=== PATIENT | female | born 1935 | race Caucasian/White ===

== ENCOUNTER → 2017-03-18 | Outpatient (CLI) | payer MEDICARE ==
[~2017-03-18] MED LIST: ARICEPT23MG PO; DONEPEZIL HYDRO23 M1 PO; FISH OIL 1,2001 EAC1 PO; GLUCOPHAGE1000 MG PO; LISINOPRIL40 MG PO; METFORMIN HCL1000 MG PO; METOPROLOL25 MG PO; NORVASC5 MG PO; VITAMIN D31000 IU PO; ZESTRIL40 MG PO; ZOCOR40 MG PO; ZOFRAN ODT4 MG SL; Zofran4 MG PO
[2017-03-18 09:44] LABS: ALBUMIN 4.2 gm/dl (3.1-4.5); BILIRUBIN, DIRECT 0.1 mg/dL (0.0-0.2); BILIRUBIN, TOTAL 0.5 mg/dl (0.2-1.0); POTASSIUM 3.9 mmol/L (3.5-5.1); TOTAL PROTEIN 7.7 gm/dL (6.4-8.2)
[2017-03-18 10:04] LABS: HEMOGLOBIN A1c 6.4 % (4.8-5.6)
== END | disposition home or self-care (01) ==
LOC: LAB 08:51
PROVIDERS: Internal Medicine
DX: I25.10 Atherosclerotic heart disease of native coronary artery without angina pectoris (principal); I10 Essential (primary) hypertension; E11.9 Type 2 diabetes mellitus without complications; G47.62 Sleep related leg cramps; E78.4 Other hyperlipidemia; Z79.1 Long term (current) use of non-steroidal anti-inflammatories (NSAID)

== ENCOUNTER → 2017-09-29 | Outpatient (CLI) | payer MEDICARE ==
[2017-09-29 09:40] LABS: POTASSIUM 3.9 mmol/L (3.5-5.1)
[2017-09-29 09:52] LABS: ALBUMIN 4.1 gm/dl (3.1-4.5); BILIRUBIN, DIRECT 0.1 mg/dL (0.0-0.2); CREATININE 1.21 mg/dL (0.55-1.02); FREE T4 1.05 ng/dl (0.76-1.46); THYROID STIM HORMONE (HS) 2.79 uIU/ml (0.358-4.75); TOTAL PROTEIN 7.6 gm/dL (6.4-8.2)
== END | disposition home or self-care (01) ==
LOC: LAB 08:49
PROVIDERS: Internal Medicine
DX: I10 Essential (primary) hypertension (principal); E11.9 Type 2 diabetes mellitus without complications; E78.4 Other hyperlipidemia; L98.8 Other specified disorders of the skin and subcutaneous tissue; E55.9 Vitamin D deficiency, unspecified; R53.83 Other fatigue

== ENCOUNTER → 2017-10-14 | Outpatient (CLI) | payer MEDICARE | END | disposition home or self-care (01) | LOC: US 09:20 | DX: N18.3 Chronic kidney disease, stage 3 (moderate) (principal); R79.89 Other specified abnormal findings of blood chemistry ==

== ENCOUNTER 2017-11-25 18:42 | Emergency (ER) | payer MEDICARE ==
[~2017-11-25] VITALS: Wt 58.1 kg
[2017-11-25] MEDS ORDERED: MEMANTINE HCL10 MG PO (18:55)
[2017-11-25 19:23] LABS: BASO # 0.1 10*3/uL (0.0-0.1); BASO % 0.9 % (0.0-1.0); EOS # 0.2 10*3/uL (0.0-0.4); EOS % 3.3 % (1.0-4.0); HEMOGLOBIN 14.2 g/dl (12.0-16.0); LYMPH # 1.9 10*3/uL (1.3-4.4); LYMPH % 27.6 % (27.0-41.0); MEAN CELL VOLUME 84.7 fl (81.0-99.0); MEAN CORPUSCULAR HGB 28.6 pg (27.0-31.0); MEAN CORPUSCULAR HGB CONC 33.8 g/dl (33.0-37.0); MEAN PLATELET VOLUME 9.8 fl (9.6-12.3); MONO # 0.5 10*3/uL (0.1-1.0); MONO % 7.3 % (3.0-9.0); NEUT # 4.1 10*3/uL (2.3-7.9); NEUT % 60.6 % (47.0-73.0); PLATELET COUNT AUTOMATED 233 10*3/uL (130-400); RED BLOOD COUNT 4.96 10*6/uL (4.10-5.10); RED CELL DISTRI WIDTH 13.1 % (0-14.5); WHITE BLOOD COUNT 6.7 10*3/uL (4.8-10.8)
[2017-11-25 19:37] LABS: ALBUMIN 4.6 gm/dl (3.1-4.5); CREATININE 1.18 mg/dL (0.55-1.02); POTASSIUM 4.1 mmol/L (3.5-5.1); TOTAL PROTEIN 8.4 gm/dL (6.4-8.2)
[2017-11-25 19:44] LABS: BILIRUBIN NEGATIVE (NEGATIVE); BLOOD TRACE-INTACT (NEGATIVE); CLARITY CLEAR (CLEAR); COLOR YELLOW (YELLOW); GLUCOSE NEGATIVE (NEGATIVE); KETONE NEGATIVE (NEGATIVE); LEUKO ESTERASE NEGATIVE (NEGATIVE); NITRITE NEGATIVE (NEGATIVE); PH 7.5 (5.0-9.0); SPECIFIC GRAVITY 1.015 (1.005-1.030); UROBILINOGEN 0.2 E.U./dl (0.2-1.0)
[2017-11-25 19:44] LABS: ACT PARTIAL THROMBO TIME 23.1 SECONDS (20.8-31.5); INTERNATIONAL NORM RATIO 0.9 (2.0-3.5)
[2017-11-25 20:06] LABS: BACTERIA 2+; EPITHELIAL CELLS 0-2
[2017-11-25] MEDS ORDERED: MACROBID100 M1 PO (20:29)
== END 2017-11-25 20:45 | disposition home or self-care (01) ==
LOC: ED 18:42
PROVIDERS: Student in an Organized Health Care Education/Training Program
DX: N39.0 Urinary tract infection, site not specified (principal); T43.8X5A Adverse effect of other psychotropic drugs, initial encounter; Z88.6 Allergy status to analgesic agent; Z91.012 Allergy to eggs; Z91.010 Allergy to peanuts; Z79.899 Other long term (current) drug therapy; Y92.89 Other specified places as the place of occurrence of the external cause

== ENCOUNTER → 2018-01-06 | Outpatient (CLI) | payer MEDICARE ==
[~2018-01-06] MED LIST changes: +MACROBID100 M1 PO; +MEMANTINE HCL10 MG PO
[2018-01-06 09:24] LABS: ALBUMIN 4.1 gm/dl (3.1-4.5); CREATININE 1.25 mg/dL (0.55-1.02); POTASSIUM 4.3 mmol/L (3.5-5.1); TOTAL PROTEIN 7.6 gm/dL (6.4-8.2)
[2018-01-06 09:31] LABS: THYROID STIM HORMONE (HS) 2.07 uIU/ml (0.358-4.75)
[2018-01-06 11:17] LABS: VITAMIN D, 25-HYDROXY 64.9 ng/mL (30-100)
[2018-01-07 09:07] LABS: HEPATITIS B SURFACE AG Negative (Negative); HEPATITIS C VIRUS ANTIBODY <0.1 s/co (0.0-0.9)
== END | disposition home or self-care (01) ==
LOC: LAB 08:23
PROVIDERS: Family Medicine
DX: E78.00 Pure hypercholesterolemia, unspecified (principal); E55.9 Vitamin D deficiency, unspecified; E11.9 Type 2 diabetes mellitus without complications; I10 Essential (primary) hypertension; R63.4 Abnormal weight loss; F03.90 Unspecified dementia, unspecified severity, without behavioral disturbance, psychotic disturbance, mood disturbance, and anxiety

== ENCOUNTER → 2018-01-14 | Outpatient (CLI) | payer MEDICARE | END | disposition home or self-care (01) | LOC: RAD 12:51 | DX: Z13.820 Encounter for screening for osteoporosis (principal); M47.896 Other spondylosis, lumbar region; M81.0 Age-related osteoporosis without current pathological fracture; Z90.710 Acquired absence of both cervix and uterus ==

== ENCOUNTER → 2018-02-11 | Outpatient (CLI) | payer MEDICARE ==
[2018-02-11 10:42] LABS: BASO # 0.1 10*3/uL (0.0-0.1); BASO % 0.9 % (0.0-1.0); EOS # 0.2 10*3/uL (0.0-0.4); EOS % 2.9 % (1.0-4.0); HEMATOCRIT 44.5 % (37.0-47.0); HEMOGLOBIN 14.8 g/dl (12.0-16.0); LYMPH # 1.9 10*3/uL (1.3-4.4); LYMPH % 33.9 % (27.0-41.0); MEAN CELL VOLUME 87.6 fl (81.0-99.0); MEAN CORPUSCULAR HGB 29.1 pg (27.0-31.0); MEAN CORPUSCULAR HGB CONC 33.3 g/dl (33.0-37.0); MEAN PLATELET VOLUME 9.9 fl (9.6-12.3); MONO # 0.4 10*3/uL (0.1-1.0); MONO % 7.5 % (3.0-9.0); NEUT # 3.1 10*3/uL (2.3-7.9); NEUT % 54.6 % (47.0-73.0); PLATELET COUNT AUTOMATED 277 10*3/uL (130-400); RED BLOOD COUNT 5.08 10*6/uL (4.10-5.10); RED CELL DISTRI WIDTH 13.1 % (0-14.5); WHITE BLOOD COUNT 5.6 10*3/uL (4.8-10.8)
[2018-02-11 10:44] LABS: BILIRUBIN NEGATIVE (NEGATIVE); BLOOD TRACE-LYSED (NEGATIVE); CLARITY SL CLOUDY (CLEAR); COLOR YELLOW (YELLOW); GLUCOSE NEGATIVE (NEGATIVE); KETONE NEGATIVE (NEGATIVE); LEUKO ESTERASE 1+ (NEGATIVE); NITRITE NEGATIVE (NEGATIVE); PH 7.5 (5.0-9.0); SPECIFIC GRAVITY 1.015 (1.005-1.030); UROBILINOGEN 0.2 E.U./dl (0.2-1.0)
[2018-02-11 10:56] LABS: YEAST TRACE
[2018-02-11 11:07] LABS: ALBUMIN 4.4 gm/dl (3.1-4.5); CREATININE 1.32 mg/dL (0.55-1.02); PHOSPHOROUS 3.3 mg/dL (2.5-4.9); POTASSIUM 4.1 mmol/L (3.5-5.1)
== END ==
LOC: LAB 09:56
PROVIDERS: Internal Medicine Nephrology
DX: N18.3 Chronic kidney disease, stage 3 (moderate) (principal)

== ENCOUNTER 2018-03-30 08:47 | Emergency (ER) | payer MEDICARE ==
[~2018-03-30] VITALS: Ht 162.5 cm; Wt 50.3 kg
[2018-03-30 09:25] LABS: BASO # 0.1 10*3/uL (0.0-0.1); EOS # 0.2 10*3/uL (0.0-0.4); EOS % 2.5 % (1.0-4.0); HEMATOCRIT 45.6 % (37.0-47.0); HEMOGLOBIN 15.3 g/dl (12.0-16.0); LYMPH # 2.2 10*3/uL (1.3-4.4); LYMPH % 31.6 % (27.0-41.0); MEAN CELL VOLUME 85.9 fl (81.0-99.0); MEAN CORPUSCULAR HGB 28.8 pg (27.0-31.0); MEAN CORPUSCULAR HGB CONC 33.6 g/dl (33.0-37.0); MEAN PLATELET VOLUME 9.4 fl (9.6-12.3); MONO # 0.5 10*3/uL (0.1-1.0); MONO % 6.8 % (3.0-9.0); PLATELET COUNT AUTOMATED 283 10*3/uL (130-400); RED BLOOD COUNT 5.31 10*6/uL (4.10-5.10); RED CELL DISTRI WIDTH 12.8 % (0-14.5); WHITE BLOOD COUNT 6.9 10*3/uL (4.8-10.8)
[2018-03-30] MEDS ORDERED: MIRALAX POWDER17 G1 PO (09:31)
[2018-03-30 09:40] LABS: ALBUMIN 4.6 gm/dl (3.1-4.5); CREATININE 1.55 mg/dL (0.55-1.02); POTASSIUM 4.1 mmol/L (3.5-5.1); TOTAL PROTEIN 8.4 gm/dL (6.4-8.2)
[2018-03-30 09:52] LABS: BILIRUBIN NEGATIVE (NEGATIVE); BLOOD TRACE-LYSED (NEGATIVE); CLARITY CLEAR (CLEAR); COLOR YELLOW (YELLOW); GLUCOSE NEGATIVE (NEGATIVE); KETONE NEGATIVE (NEGATIVE); LEUKO ESTERASE NEGATIVE (NEGATIVE); NITRITE NEGATIVE (NEGATIVE); UROBILINOGEN 0.2 E.U./dl (0.2-1.0)
[2018-03-30 10:18] LABS: BACTERIA 2+; FINE GRANULAR CAST TNTC; HYALINE CAST TNTC; MUCOUS 1+; RED BLOOD CELL CAST 0-2
== END 2018-03-30 11:17 | disposition home or self-care (01) ==
LOC: ED 08:47
PROVIDERS: Emergency Medicine
DX: K59.00 Constipation, unspecified (principal); R74.0 Nonspecific elevation of levels of transaminase and lactic acid dehydrogenase [LDH]; R10.30 Lower abdominal pain, unspecified; E11.65 Type 2 diabetes mellitus with hyperglycemia; I12.9 Hypertensive chronic kidney disease with stage 1 through stage 4 chronic kidney disease, or unspecified chronic kidney disease; E11.22 Type 2 diabetes mellitus with diabetic chronic kidney disease; N18.9 Chronic kidney disease, unspecified; E78.5 Hyperlipidemia, unspecified; Z79.899 Other long term (current) drug therapy; Z90.710 Acquired absence of both cervix and uterus; Z90.49 Acquired absence of other specified parts of digestive tract; Z88.6 Allergy status to analgesic agent; Z91.013 Allergy to seafood; Z91.012 Allergy to eggs

== ENCOUNTER 2018-06-16 14:14 | Emergency (ER) | payer MEDICARE ==
[~2018-06-16] VITALS: Ht 162.5 cm; Wt 54.9 kg
--- NOTE | ~2018-06-16 | EKG ---
[place], [place] ELECTROCARDIOGRAM REPORT NAME: CINDY ANDERSON UNIT #: [id number] ROOM: DOCTOR: EPIPHANY DRAFT REPORT BIRTHDATE: [birth year] [facility] Test Date: 2018-06-16 Test Time: 15:46:27 Pat Name: CINDY ANDERSON Department: Room: Gender: F Meter Technician: : 1935 Requested By: NIKKY SHARPE DNP Order Number: [id number] Reading MD: Measurements Intervals [place] Rate: 76 P: 28 ID: [id number] QRS: 46 QRSD: 74 T: 68 QT: 402 QTc: 453 Interpretive Statements Sinus rhythm No previous ECG available for comparison CM:EKGRPT:ELECTROCARDIOGRAM REPORT 1546 1248 NIKKY LAGUNA DRAFT REPORT NIKKY SHARPE DNP
[~2018-06-16 14:14] MED LIST changes: +MIRALAX POWDER17 G1 PO; -VITAMIN D31000 IU PO; +VITAMIN D31000 UNI1 PO
[2018-06-16] MEDS ORDERED: ALENDRONATE SOD70 M1 PO (14:46)
[2018-06-16] MEDS ORDERED: ZOLOFT25 MG PO (14:46)
[2018-06-16] MEDS ORDERED: CO Q-1010 M2 PO (14:47)
[2018-06-16] MEDS ORDERED: OS-CAL 500+D31 EACH PO (14:47)
[2018-06-16 15:45] LABS: BILIRUBIN NEGATIVE (NEGATIVE); BLOOD TRACE-INTACT (NEGATIVE); CLARITY CLEAR (CLEAR); COLOR YELLOW (YELLOW); GLUCOSE NEGATIVE (NEGATIVE); KETONE NEGATIVE (NEGATIVE); LEUKO ESTERASE TRACE (NEGATIVE); NITRITE NEGATIVE (NEGATIVE); UROBILINOGEN 0.2 E.U./dl (0.2-1.0)
[2018-06-16 15:51] LABS: BASO # 0.1 10*3/uL (0.0-0.1); BASO % 0.7 % (0.0-1.0); EOS # 0.1 10*3/uL (0.0-0.4); EOS % 1.7 % (1.0-4.0); HEMATOCRIT 41.2 % (37.0-47.0); HEMOGLOBIN 13.9 g/dl (12.0-16.0); LYMPH % 28.3 % (27.0-41.0); MEAN CELL VOLUME 86.2 fl (81.0-99.0); MEAN CORPUSCULAR HGB 29.1 pg (27.0-31.0); MEAN CORPUSCULAR HGB CONC 33.7 g/dl (33.0-37.0); MEAN PLATELET VOLUME 9.2 fl (9.6-12.3); MONO # 0.7 10*3/uL (0.1-1.0); MONO % 9.7 % (3.0-9.0); NEUT # 4.2 10*3/uL (2.3-7.9); NEUT % 59.3 % (47.0-73.0); PLATELET COUNT AUTOMATED 332 10*3/uL (130-400); RED BLOOD COUNT 4.78 10*6/uL (4.10-5.10); RED CELL DISTRI WIDTH 12.8 % (0-14.5); WHITE BLOOD COUNT 7.1 10*3/uL (4.8-10.8)
[2018-06-16 16:03] LABS: URINE AMPHETAMINES < 1000 (1000ng/ml); URINE BARBITURATES < 200 (200ng/ml); URINE CANNABINOIDS (THC) < 50 (50ng/ml); URINE COCAINE < 300 (300ng/ml); URINE METHADONE < 300 (300ng/ml); URINE OPIATES < 300 (300ng/ml)
[2018-06-16 16:04] LABS: URINE BENZODIAZEPINES < 200 (200ng/ml)
[2018-06-16 16:08] LABS: URINE PHENCYCLIDINE < 25 (25ng/ml)
[2018-06-16 16:11] LABS: ACETAMINOPHEN (TYLENOL) < 5.0 ug/ml (10-30); ALBUMIN 3.9 gm/dl (3.1-4.5); ALKALINE PHOSPHATASE 80 U/L (45-117); BUN 17 mg/dl (7-24); CHLORIDE 103 mmol/L (98-107); CREATININE 1.19 mg/dL (0.55-1.02); ETHYL ALCOHOL < 3.0 mg/dl (<3); POTASSIUM 4.3 mmol/L (3.5-5.1); SGOT/AST 17 IU/L (3-35); SGPT/ALT 13 U/L (12-78); SODIUM 137 mmol/L (136-145); TOTAL PROTEIN 7.9 gm/dL (6.4-8.2)
[2018-06-16 16:25] LABS: BACTERIA TRACE
== END 2018-06-16 21:09 | disposition other institution (70) ==
LOC: ED 14:14
PROVIDERS: Nurse Practitioner Family
DX: F33.9 Major depressive disorder, recurrent, unspecified (principal); R45.851 Suicidal ideations; Z88.6 Allergy status to analgesic agent; Z88.8 Allergy status to other drugs, medicaments and biological substances; Z79.899 Other long term (current) drug therapy

== ENCOUNTER 2018-06-16 18:26 | Inpatient (IN) | payer MEDICARE ==
[~2018-06-16] VITALS: Ht 158.7 cm; Wt 53.2 kg
--- NOTE | ~2018-06-16 | DS ---
[place], [place] DISCHARGE SUMMARY [id number] UN[facility] #: [id number] ROOM: 314 DOCTOR: NORM CREWS MD BIRTHDATE: [birth year] DOS: 06/22/2018 CHIEF COMPLAINT: "I don't remember what happened." HISTORY OF PRESENT ILLNESS: This is an 83-year-old white female who presented to the Emergency Room at [facility] with family. The patient was found by family sitting at the edge of her bed with a knife held to her wrist. She does not remember doing this, but did voice that she was suicidal and very depressed. While in the Emergency Room, the patient did not remember sitting there with a knife, but does continue to endorse depressive symptomatology. She reports poor sleep and appetite, anergia, hopeless, helpless feelings. The patient has been increasingly confused at home and family has noted a decline over the last several months. She was admitted now to the [facility] to rule out any organic factors, to attempt to stabilize on medication, to engage in individual and rizvi milieu activity and then to determine the least restrictive environment to which she could return. SUMMARY OF HOSPITAL COURSE: The patient was admitted to the unit where her donepezil was discontinued in lieu of Exelon patch 4.6 mg daily, Namenda 10 mg a day was continued from her home medicines and gradually increased to its maximum dose of 10 mg twice daily. The patient had presented with sertraline as her antidepressant of choice from home, but this was ineffective, so it was discontinued in lieu of Remeron 15 mg at bedtime, which had an immediate improvement on her sleep and appetite. The patient tolerated the medication changes well. Eventually, the Exelon patch was brought to its maximum dose of 13.3 mg daily without any apparent side effects. The patient improved gradually over time she became much more outgoing and left her room more frequently. She engaged in group activities with the entire milieu and especially with many of the women her own age. She reported no further symptoms of depression and convincingly denied any suicidal thoughts or plans. The patient had improved sufficiently to return home on 06/22. MENTAL STATUS AT DISCHARGE: She is alert and oriented with time gaps. Mood does seem to be more euthymic and she even joked with me upon discharge, she denied any neurovegetative symptoms. She denied suicidal thoughts, homicidal thoughts or any self-injurious thoughts. There was no hypomania, melania or psychosis. Short term memory continued to have issues. DIAGNOSES AT DISCHARGE: Major depression, recurrent, severe, and Alzheimer's dementia. DISPOSITION: The patient is to return home. All of her prescriptions have been E-scribed to [facility]. At the time of discharge, there were no acute issues medically and psychiatrically, the patient was stable. [place], [place] DISCHARGE SUMMARY NAME: CINDY ANDERSON UNIT #: [id number] ROOM: [facility] DOCTOR: NORM CREWS MD BIRTHDATE: [birth year] NORM CREWS MD CM:DISCHARG 0 1 NORM CREWS MD 06/22/18921 interface
--- NOTE | ~2018-06-16 | PR ---
[place], [place] PROGRESS NOTE NAME: CINDY ANDERSON UNIT #: [id number] ROOM: 317 DOCTOR: NORM CREWS MD BIRTHDATE: [birth year] DOS: 06/18/2018 CHIEF COMPLAINT: "Oh, I am cold; I could use a little bit more heat in here." SUMMARY OF THE VISIT: The patient was interviewed in her room. She was resting first in bed, but then sat up and sat at the edge of her bed. She engaged readily in conversation, reporting that she is feeling better. She was a little vague on the events that led to her coming into the hospital. She does report that she does feel that she will return back to her brother's home, but is open to considering assisted living or other options. I discussed talking about this to Kettle Fry Cook Operator and she nodded in approval. MENTAL STATUS: She is alert and oriented with time gaps. Mood does seem to be trending towards euthymia. Affect is more appropriate. There is no melania or hypomania noted. There are no gross psychotic symptoms. Memory does have some mild gaps, otherwise she is intact. PLAN: I will maintain her Exelon patch at 9.5 mg a day, but increase her Namenda to 10 mg b.i.d., maximizing potential benefit. We will attempt to engage her in individual and rizvi milieu activity, returning then to the least restrictive environment when psychiatrically stable. NORM CREWS MD CM:PNTRANS [id number] NORM CREWS MD 06/18/18 1120 interface
--- NOTE | ~2018-06-16 | WRIGHTHP ---
[place], [place] PATIENT HISTORY AND PHYSICAL EXAM NAME: CINDY ANDERSON [facility] #: [id number] UNIT #: [id number] ROOM: 317 DOCTOR: NORM CREWS MD BIRTHDATE: [birth year] DOS: 06/16/2018 CHIEF COMPLAINT: "I don't remember what happened." HISTORY OF PRESENT ILLNESS: This is an 83-year-old white female who presented to the Emergency Room in [facility] with family. The patient was found by family sitting at the edge of her bed with a knife held to her wrist. The patient does not remember getting there but she did voice that she was suicidal and very depressed. The patient while in the Emergency Room reports that she does not remember being there with a knife, but does continue to endorse depressive symptoms. She reports poor sleep and appetite, anergia, anhedonia, hopeless, helpless feelings. Additionally, she is very confused and family has noticed that over the last several months her confusion is worsening. She is admitted now to rule out any organic factors to attempt to stabilize on medication, to engage in individual and rizvi milieu activity, to determine the least restrictive environment to which she could be returned. PAST MEDICAL HISTORY: Remarkable for Alzheimer's dementia, chronic kidney disease stage 3, diabetes, hyperlipidemia, hypertension, vitamin D deficiency. SOCIAL HISTORY: The patient does not drink alcohol. She has never been a smoker and she denies any drug use. ALLERGIES: The patient lists allergies to FOSINOPRIL, PINE TREES and HYDROCHLOROTHIAZIDE. STRENGTHS: Good verbal skills, supportive family. WEAKNESSES: Cognitive decline, poor coping skills. MENTAL STATUS: She is alert and oriented to person, possibly place, not to time. Mood does seem to be overwhelmingly depressed and she endorses multiple neurovegetative symptoms. There is no melania, hypomania. There is no psychosis. Short term memory has gaps and she openly admits to having memory issues. DIAGNOSIS: Major depression, recurrent, severe, and Alzheimer's dementia. PLAN: I have already maintained her on Namenda 10 mg a day and we will increase this accordingly. I have discontinued donepezil in lieu of Exelon patch 4.6 mg a day, which I will plan to rapidly titrate to its maximum dose of 13.3 mg daily. I have discontinued sertraline as an antidepressant due to its ineffectiveness and I have started her on Remeron 15 mg at bedtime. We will engage in individual and rizvi milieu activity, returning to the least restrictive environment when psychiatrically stable. [place], [place] PATIENT HISTORY AND PHYSICAL EXAM NAME: CINDY ANDERSON UNIT #: [id number] ROOM: [facility] DOCTOR: NORM CREWS MD BIRTHDATE: [birth year] NORM CREWS MD CM:HISPHYS:PATIENT HISTORY AND PHYSICAL EXAMINATION 6 7 NORM CREWS MD 06/17/18907 interface
--- NOTE | ~2018-06-16 | CON ---
[place], [place] REPORT OF CONSULTATION NAME: CINDY ANDERSON UNIT #: [id number] ROOM: 314 DOCTOR: NEGRO, PHD PA BIRTHDATE: [birth year] DOS: 06/18/2018 SUBJECTIVE: I met with the patient to further explore her trauma history and possible dissociative episode per Dr. Pastor discussed the patient's history of remote trauma and the patient denied symptoms of re-experiencing hypervigilance and intrusive thoughts. She states that this event is not currently an issue for her. Discussed the events leading up to her hospitalization and the patient's emphatic denial of trying to hurt herself. Nevertheless, the patient has a history of depression. Discussed the case with case resolution specialist, Nichole, who indicated that the patient's family has a history of depression and suicide, which is minimized. The patient's family appears to minimize the patient's depressive behaviors at home and shame her for them. Overall, the patient's depression appears to be a large contributing factor to her behaviors that led her to be hospitalized, which she may be minimizing as well. Her dementia may also be a contributing factor in her recollection of the events. 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 Martha Hubbard, PhD CM:CONSTR:REPORT OF CONSULTATION 1756 06/23/18 0719 interface
--- NOTE | ~2018-06-16 | PR ---
[place], [place] PROGRESS NOTE NAME: CINDY ANDERSON UNIT #: [id number] ROOM: 314 DOCTOR: NORM CREWS MD BIRTHDATE: [birth year] DOS: 06/19/2018 CHIEF COMPLAINT: "Oh, I think I slept okay." SUMMARY OF THE VISIT: The patient was interviewed as she sat having already eaten her breakfast. She was sitting there with her roommate. She did report that she slept well, but then her roommate did interject that she did not sleep well because the roommate was talking in her sleep and kept her awake. The patient tends to minimize things and her memory does exhibit gaps so she is not always the greatest historian. She does outwardly seem to be tolerating the medication well and I see no overt side effects. MENTAL STATUS: She is alert and oriented with significant time gaps. Mood does seem to be trending towards euthymia. Affect is more appropriate. There is no melania, hypomania or gross psychosis. She convincingly denies suicidal thoughts, homicidal thoughts or any self-injurious thoughts. Short term memory continues to be problematic. PLAN: I will increase her Exelon patch from 4.6 to 9.5 mg a day while maintaining Namenda 10 mg twice daily. We will plan to maximize out the dose of the Exelon patch over the weekend. Continue to engage in individual and rizvi milieu activity, returning to the least restrictive environment when psychiatrically stable. NORM CREWS MD CM:PNTRANS 0849 NORM CREWS MD 06/19/1837 interface
--- NOTE | ~2018-06-16 | CON ---
[place], [place] REPORT OF CONSULTATION [id number] UNIT #: [id number] ROOM: 314 DOCTOR: PHD ANTONIA HUBBARDHERINE BIRTHDATE: [birth year] DOS: 06/17/2018 HISTORY OF PRESENT ILLNESS: The patient is an 83-year-old female with history of dementia who was referred by Dr. Pastor for a competency evaluation. At the present time, the patient is on the [facility] at [facility]. She reports that her son is her power of business attorney and records indicate he is planning on bringing the paperwork in today at noon. CT of her head on 09/29/2015 revealed mild patchy areas of low attenuation in the subcortical and periventricular white matter suggesting chronic microvascular ischemia. The patient is a and has 2 children. She lives with her younger brother who helps manage her medications. She has a high school education. She stopped driving 3 years ago due to driving off of the road. Alcohol, tobacco and illegal drug use were denied. PAST MEDICAL HISTORY: Chronic kidney disease, diabetes, hyperlipidemia, hypertension, vitamin D deficiency. The patient was sitting comfortably, in no apparent distress. She was oriented to person, place, month, and situation. She gave the date as the , but cannot state the year. She could name the president and to current events. Eye contact and social skills were appropriate. Affect was blunted and mood was depressed. The patient firmly denied suicidal and homicidal ideation, plan, and intent. Speech was within normal limits with respect to the rhythm, rate, volume and tone. Thought process was linear and goal directed and thought content appeared within normal limits. Insight and judgment were fair. The patient was not able to discuss her medical conditions. She can name one medication she takes and states that she does not know what other pills she takes or when she is supposed to take them, so she relies on her brother to help her. The patient earned a score of 12/30 on the Krishan Cognitive Assessment with an intact score being 26. Mini trials B and Necker cube copy were impaired. Clock drawing was noteworthy for an ease of confusion with the patient drawing the #7 twice and not being able to draw the rest of the numbers on the clock or the clock hands. Attention was impaired with the patient not being able to produce 5 digits forward. She could perform a minimum of three digits backwards. She made several errors on a test of vigilance and made one correct serial 7 subtraction. With respect to language ability, she was able to repeat one out of 2 sentences correctly and she produced 12 words in 1 minute on a test of verbal fluency. She mistakenly called a lion a tiger and a rhinoceros a hippopotamus on a test of naming. Verbal abstraction was noteworthy for concreteness on the test of memory. The patient was able to recall 4/5 and 2/5 words on immediate recall trials and 0/5 words for delayed spontaneous recall. Performance improved to 1/5 with category cues and 2/5 with multiple choices. Overall, the patient demonstrated significant cognitive deficits in the areas of executive functioning, attention and memory. Contributing factors likely include her history of hypertension, diabetes and hyperlipidemia. Other contributing factors may include her depression. In my opinion, she does not appear competent to make her medical decisions at this time and her POA should be utilized for decision making. 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 [place], [place] REPORT OF CONSULTATION NAME: CINDY ANDERSON UNIT #: [id number] ROOM: 314 DOCTOR: NEGRO, PHD PA BIRTHDATE: [birth year] RECOMMENDATIONS: The patient would benefit from utilizing her POA. Thank you very much for this consult. Martha Hubbard, PhD CM:CONSTR:REPORT OF CONSULTATION 1123 06/23/18 0707 interface
[~2018-06-16 18:26] MED LIST changes: +ALENDRONATE SOD70 M1 PO; +CO Q-1010 M2 PO; +OS-CAL 500+D31 EACH PO; +ZOLOFT25 MG PO
[2018-06-16 21:15] VITALS: BP 152/56
[2018-06-16 22:22] VITALS: BP 152/56
[2018-06-17 06:37] LABS: BASO # 0.1 10*3/uL (0.0-0.1); EOS # 0.2 10*3/uL (0.0-0.4); EOS % 2.7 % (1.0-4.0); HEMATOCRIT 41.9 % (37.0-47.0); HEMOGLOBIN 13.8 g/dl (12.0-16.0); LYMPH # 1.9 10*3/uL (1.3-4.4); LYMPH % 30.4 % (27.0-41.0); MEAN CELL VOLUME 86.6 fl (81.0-99.0); MEAN CORPUSCULAR HGB 28.5 pg (27.0-31.0); MEAN CORPUSCULAR HGB CONC 32.9 g/dl (33.0-37.0); MEAN PLATELET VOLUME 9.2 fl (9.6-12.3); MONO # 0.5 10*3/uL (0.1-1.0); MONO % 8.2 % (3.0-9.0); NEUT # 3.6 10*3/uL (2.3-7.9); NEUT % 57.5 % (47.0-73.0); PLATELET COUNT AUTOMATED 354 10*3/uL (130-400); RED BLOOD COUNT 4.84 10*6/uL (4.10-5.10); RED CELL DISTRI WIDTH 12.9 % (0-14.5); WHITE BLOOD COUNT 6.2 10*3/uL (4.8-10.8)
[2018-06-17 06:55] LABS: ALBUMIN 3.5 gm/dl (3.1-4.5); CREATININE 1.08 mg/dL (0.55-1.02)
[2018-06-17 07:05] VITALS: BP 148/60
[2018-06-17 07:05] LABS: THYROID STIM HORMONE (HS) 1.95 uIU/ml (0.358-4.75); TOTAL PROTEIN 7.2 gm/dL (6.4-8.2)
[2018-06-17 08:10] VITALS: BP 148/60
[2018-06-17 19:16] VITALS: BP 132/61
[2018-06-18 06:51] VITALS: BP 152/62
[2018-06-18 19:49] VITALS: BP 108/62
[2018-06-19 06:56] VITALS: BP 154/58
[2018-06-19 20:16] VITALS: BP 152/56
[2018-06-20 07:29] VITALS: BP 141/69
[2018-06-20 20:45] VITALS: BP 132/68
[2018-06-21 07:23] VITALS: BP 146/68
[2018-06-21 19:19] VITALS: BP 163/81
[2018-06-22 07:36] VITALS: BP 149/62
[2018-06-22] MEDS ORDERED: EXELON13.3 MG/21 T (09:07)
[2018-06-22] MEDS ORDERED: Vitamin D PO (09:07)
[2018-06-22] MEDS ORDERED: MIRTAZAPINE15 M2 PO (09:07)
[2018-06-22] MEDS ORDERED: MEMANTINE HCL10 MG PO (09:07)
== END 2018-06-22 13:20 | disposition home or self-care (01) | DRG 57 ==
LOC: 3N 18:26
PROVIDERS: Psychiatry & Neurology Psychiatry
DX: G30.9 Alzheimer's disease, unspecified (principal); F02.81 Dementia in other diseases classified elsewhere, unspecified severity, with behavioral disturbance; F33.2 Major depressive disorder, recurrent severe without psychotic features; M85.80 Other specified disorders of bone density and structure, unspecified site; N18.3 Chronic kidney disease, stage 3 (moderate); E11.22 Type 2 diabetes mellitus with diabetic chronic kidney disease; E78.5 Hyperlipidemia, unspecified; E55.9 Vitamin D deficiency, unspecified; I12.9 Hypertensive chronic kidney disease with stage 1 through stage 4 chronic kidney disease, or unspecified chronic kidney disease; Z88.8 Allergy status to other drugs, medicaments and biological substances; Z90.49 Acquired absence of other specified parts of digestive tract; Z82.49 Family history of ischemic heart disease and other diseases of the circulatory system; Z81.8 Family history of other mental and behavioral disorders

== ENCOUNTER → 2018-07-22 | Outpatient (CLI) | payer MEDICARE ==
[~2018-07-22] MED LIST changes: +EXELON13.3 MG/21 T; +MIRTAZAPINE15 M2 PO; +Vitamin D PO
== END | disposition home or self-care (01) ==
LOC: LAB 13:50
PROVIDERS: Family Medicine
DX: M25.511 Pain in right shoulder (principal); M25.512 Pain in left shoulder; M79.10 Myalgia, unspecified site; R53.83 Other fatigue

== ENCOUNTER 2018-08-28 14:54 | Inpatient (IN) | payer MEDICARE ==
[~2018-08-28] VITALS: Ht 162.5 cm; Wt 51.0 kg
--- NOTE | ~2018-08-28 | PR ---
[place], [place] PROGRESS NOTE [id number] #: [id number] ROOM: 420 DOCTOR: ELAINE NASH MD BIRTHDATE: [birth year] DOS: 09/02/2018 SUBJECTIVE: The patient is doing well except for feeling somewhat tired today. OBJECTIVE: GENERAL APPEARANCE: The patient is pleasantly confused. VITAL SIGNS: Blood pressure 159/53, heart rate 95 beats per minute, breathing 18 times per minute, afebrile. HEENT AND NECK: Exam within normal limits. CARDIOVASCULAR SYSTEM: Heart rate is regular in rate and rhythm. S1 and S2 normally audible. LUNGS: Clear to auscultation. ABDOMEN: Soft, nontender. No obvious organomegaly. Bowel sounds are present. EXTREMITIES: Without significant cyanosis or edema. IMPRESSION: 1. The patient is in mild protein-calorie malnutrition with albumin level of 3, being followed by Dietary. 2. Late onset Alzheimer's type dementia, being followed. The patient remains on rivastigmine and memantine. 3. Contact dermatitis with skin rash, which is treated with 1% hydrocortisone cream. The patient recommended sensitive skin soap and moisturizers and washing liquid. 4. Benign essential hypertension, treated and controlled. The patient remains on amlodipine and lisinopril. 5. Behavioral issues associated with Alzheimer's type dementia, treated with mirtazapine. 6. Advance adult failure to thrive and ambulatory dysfunction. The patient worked with physical therapy. ELAINE NASH MD CM:PNTRANS 1105 [id number] ELAINE NASH MD 09/03/18 0719 interface
--- NOTE | ~2018-08-28 | WRIGHTHP ---
[place], [place] PATIENT HISTORY AND PHYSICAL EXAM NAME: CINDY ANDERSON [facility] #: [id number] UNIT #: [id number] ROOM: 420 DOCTOR: ELAINE NASH MD BIRTHDATE: [birth year] DOS: 08/28/2018 HISTORY OF PRESENT ILLNESS: The patient is an 83-year-old female brought in to [facility] Emergency Department with inability to ambulate, generalized weakness, dehydration and placement to a nursing facility. PAST MEDICAL HISTORY: 1. Major depression, recurrent, severe. 2. Late onset Alzheimer's type dementia. 3. Type 2 diabetes mellitus. 4. Mixed hyperlipidemia. 5. Vitamin D deficiency. 6. Chronic kidney disease stage 3. REVIEW OF SYSTEMS: RESPIRATORY: No increasing shortness of breath. GASTROINTESTINAL: No nausea, vomiting, diarrhea, constipation. CARDIOVASCULAR: No chest pain or palpitations. FAMILY HISTORY: Noncontributory. ALLERGIES: Known allergies to STATINS, ASPIRIN, ATACAND, LASIX, TOPROL, SULAR, ACCUPRIL. HOME MEDICATIONS: Amlodipine, vitamin D, lisinopril, benazepril, memantine, Fosamax, calcium, Zoloft. PHYSICAL EXAMINATION: GENERAL: Alert, awake, pleasant with generalized weakness, partially oriented, in no visible distress. VITAL SIGNS: Blood pressure 127/58, heart rate 87 beats per minute, breathing 20 times per minute, temperature 98 degrees Fahrenheit. HEENT AND NECK: Extraocular movements are intact. Sclerae are anicteric. Oral mucosa is moist and clean. No obvious facial weakness. Neck is supple without any lymphadenopathy. No thyromegaly. No JVD. No carotid arterial bruits. LUNGS: Clear to auscultation. No wheezing. No rhonchi. CARDIOVASCULAR SYSTEM: Heart rate is regular in rate and rhythm. S1 and S2 normally audible. No significant murmur or any other abnormal cardiac sounds. ABDOMEN: Soft, nontender. No obvious organomegaly. Bowel sounds are present. No obvious herniation. EXTREMITIES: Without significant cyanosis or edema. Warm to touch. CENTRAL NERVOUS SYSTEM: Alert and oriented x 3. Cranial nerves II-XII are intact. Speech is normal. The patient is able to move all extremities. Normal muscle strength. Deep tendon reflexes are equal on both sides. Plantars were downgoing. IMPRESSION AND PLAN: 1. The patient with late onset Alzheimer's type dementia, to be continued on rivastigmine, memantine. 2. Major depression, recurrent, severe. The patient has been doing well. [place], [place] PATIENT HISTORY AND PHYSICAL EXAM NAME: CINDY ANDERSON UNIT #: [id number] ROOM: [facility] DOCTOR: ELAINE NASH MD BIRTHDATE: [birth year] 3. Advance adult failure to thrive. The patient requires long-term placement. 4. Benign essential hypertension, treated with amlodipine and lisinopril, which are being continued. 5. For behavioral issues associated with Alzheimer type dementia, the patient remains on mirtazapine. 6. Consult Physical Therapy and case management. ELAINE NASH MD CM:HISPHYS:PATIENT HISTORY AND PHYSICAL EXAMINATION 13 41 ELAINE NASH MD 08/29/181942 interface
--- NOTE | ~2018-08-28 | PR ---
[place], [place] PROGRESS NOTE [id number] #: [id number] ROOM: 420 DOCTOR: ELAINE NASH MD BIRTHDATE: [birth year] DOS: 08/31/2018 SUBJECTIVE: The patient is still waiting for placement. OBJECTIVE: GENERAL APPEARANCE: The patient is alert and oriented x 3, in no visible distress. Has generalized weakness. VITAL SIGNS: Blood pressure 140/62, heart rate 87 beats per minute, breathing 16 times per minute, afebrile. HEENT AND NECK: Exam within normal limits. CARDIOVASCULAR SYSTEM: Heart rate is regular in rate and rhythm. S1 and S2 normally audible. LUNGS: Clear to auscultation. ABDOMEN: Soft, nontender. No obvious organomegaly. Bowel sounds are present. EXTREMITIES: Without significant cyanosis or edema. IMPRESSION: 1. Late onset of Alzheimer's type dementia with disability. The patient is working with physical therapy and remains on rivastigmine and memantine. 2. Adult failure to thrive and ambulatory dysfunction, treated with physical therapy and the patient waiting for transfer to a nursing facility. 3. Behavioral issues with Alzheimer's type dementia, treated with mirtazapine. 4. Benign essential hypertension. The patient is on amlodipine and lisinopril. Blood pressures are being monitored and staying normal. ELAINE NASH MD CM:PNTRANS 1706 0721 ELAINE NASH MD 09/01/18 0722 interface
--- NOTE | ~2018-08-28 | PR ---
[place], [place] PROGRESS NOTE [id number] UNIT #: [id number] ROOM: 420 DOCTOR: ELAINE NASH MD BIRTHDATE: [birth year] DOS: 08/30/2018 SUBJECTIVE: The patient is feeling about the same. OBJECTIVE: VITAL SIGNS: Blood pressure 152/63, heart rate 82 beats per minute, breathing 17 times per minute, afebrile. GENERAL APPEARANCE: The patient is alert and oriented x 3, in no visible distress. HEENT AND NECK: Exam within normal limits. CARDIOVASCULAR SYSTEM: Heart rate is regular in rate and rhythm. S1 and S2 normally audible. LUNGS: Clear to auscultation. ABDOMEN: Soft, nontender. No obvious organomegaly. Bowel sounds are present. EXTREMITIES: Without significant cyanosis or edema. IMPRESSION: 1. Late onset Alzheimer's type dementia, advanced disability. The patient remains on rivastigmine and memantine. 2. Advanced adult failure to thrive. The patient waiting for group home placement. 3. Major depression, recurrent, severe, being treated and followed. 4. Benign essential hypertension, treated with amlodipine, lisinopril. Blood pressure is being monitored and treated. 5. Behavioral issues associated with Alzheimer type dementia. The patient remains on mirtazapine. 6. The patient working with physical therapy. ELAINE NASH MD CM:PNTRANS 1129 [id number] ELAINE NASH MD 08/30/18 2353 interface
--- NOTE | ~2018-08-28 | EKG ---
[place], [place] ELECTROCARDIOGRAM REPORT NAME: CINDY ANDERSON UNIT #: [id number] ROOM: 420 DOCTOR: LUZ ELENA DRAFT REPORT BIRTHDATE: [birth year] [facility] Test Date: 2018-08-28 Test Time: 15:31:11 Pat Name: CINDY ANDERSON Department: Room: 420 Gender: F Tour Conductor: : 1935 Requested By: EDITA WONG Order Number: [id number] Reading MD: Alli Root MD Measurements Intervals [place] Rate: 77 P: 27 FL: 167 QRS: 68 QRSD: 73 T: 82 QT: 368 QTc: 417 Interpretive Statements Sinus rhythm Compared to ECG 06/16/2018 15:46:27 No significant changes Electronically Signed On 08-28-2018 16:34:44 PST by Alli Root MD CM:EKGRPT:ELECTROCARDIOGRAM REPORT 1531 1634 EDITA NARANJO DRAFT REPORT EDITA WONG DO
--- NOTE | ~2018-08-28 | DS ---
[place], [place] DISCHARGE SUMMARY NAME: CINDY ANDERSON UNIT #: [id number] ROOM: 420 DOCTOR: ELAINE NASH MD BIRTHDATE: [birth year] DOS: 09/03/2018 DISCHARGE DIAGNOSES: 1. Advanced disability and adult failure to thrive. 2. Ambulatory dysfunction. The patient worked with physical therapy. 3. Late onset Alzheimer's type dementia. 4. Mild protein-calorie malnutrition, albumin level of 3. 5. Contact dermatitis, skin rash. 6. Benign essential hypertension. 7. Behavioral issues associated with Alzheimer type dementia. 8. Major depression, recurrent, severe. 9. Type 2 diabetes mellitus. 10. Mixed hyperlipidemia. 11. Vitamin D deficiency. 12. Chronic kidney disease stage 3. HOSPITAL COURSE: The patient was admitted when she presented to [facility] Emergency Department, brought over by the family for ambulatory dysfunction. The patient had inability to ambulate, generalized weakness and dehydration and required placement to a nursing facility. After admission, the patient started eating better and was working with physical therapy. Assisted living facility was full and the patient did not qualify for long-term rehab because she started ambulating well with physical therapy. Type 2 diabetes mellitus. Blood sugars are reasonably controlled. Chronic kidney disease stage 3, stable. The patient also had diabetic nephropathy. Vitamin D deficiency, to be replaced with supplements. Benign essential hypertension, treated and controlled. Major depression, recurrent, severe, treated and controlled. The patient's daughter plans to take her home. LABORATORY DATA: BUN and creatinine 24 and 1.6. Normal serum electrolytes. Albumin low at 3. Mild protein-calorie malnutrition with albumin level of 3. DISCHARGE MANAGEMENT: Rivastigmine 6 mg b.i.d., hydrocortisone cream to be applied to skin with contact dermatitis. Memantine 10 mg b.i.d., lisinopril 20 mg a day, amlodipine 5 mg b.i.d., mirtazapine 15 mg at bedtime, Tylenol p.r.n. [place], [place] DISCHARGE SUMMARY NAME: CINDY ANDERSON UNIT #: [id number] ROOM: 420 DOCTOR: EALINE NASH MD BIRTHDATE: [birth year] ELAINE NASH MD CM:CHIDI [id number] ELAINE NASH MD 09/03/18 2153 interface
--- NOTE | ~2018-08-28 | PR ---
[place], [place] PROGRESS NOTE [id number] UN[facility] #: [id number] ROOM: 420 DOCTOR: ELAINE NASH MD BIRTHDATE: [birth year] DOS: 09/01/2018 SUBJECTIVE: The patient is feeling better, no new complaints. OBJECTIVE: VITAL SIGNS: Blood pressure 136/60, heart rate of 79 beats per minute, breathing 18 times per minute, temperature 98.2 degrees Fahrenheit. GENERAL APPEARANCE: The patient is alert and oriented x 3, in no visible distress. Has generalized weakness. HEENT AND NECK: Exam within normal limits. CARDIOVASCULAR SYSTEM: Heart rate is regular in rate and rhythm. S1 and S2 normally audible. LUNGS: Clear to auscultation. ABDOMEN: Soft, nontender. No obvious organomegaly. Bowel sounds are present. EXTREMITIES: Without significant cyanosis or edema. The patient is doing about the same. She has generalized weakness and adult failure to thrive. She is waiting for transfer to rehabilitation. Otherwise, she is staying stable. IMPRESSION: 1. Late onset Alzheimer's type dementia and disability. The patient working with physical therapy and remains on rivastigmine and memantine. 2. Adult failure to thrive and ambulatory dysfunction. The patient working with physical therapy and waiting for transfer to a nursing facility. 3. Behavioral issues related to Alzheimer's type dementia, treated with mirtazapine. Remains the same. 4. Benign essential hypertension, treated and controlled. ELAINE NASH MD CM:PNTRANS [id number] ELAINE NASH MD 09/02/18 1523 interface
[2018-08-28 14:55] VITALS: BP 132/89
[2018-08-28 15:44] LABS: BASO # 0.1 10*3/uL (0.0-0.1); EOS # 0.4 10*3/uL (0.0-0.4); EOS % 5.7 % (1.0-4.0); HEMOGLOBIN 11.2 g/dl (12.0-16.0); LYMPH # 1.8 10*3/uL (1.3-4.4); LYMPH % 27.4 % (27.0-41.0); MEAN CELL VOLUME 87.3 fl (81.0-99.0); MEAN CORPUSCULAR HGB 27.9 pg (27.0-31.0); MEAN PLATELET VOLUME 9.1 fl (9.6-12.3); MONO # 0.6 10*3/uL (0.1-1.0); MONO % 8.3 % (3.0-9.0); NEUT # 3.8 10*3/uL (2.3-7.9); NEUT % 57.3 % (47.0-73.0); PLATELET COUNT AUTOMATED 366 10*3/uL (130-400); RED BLOOD COUNT 4.01 10*6/uL (4.10-5.10); RED CELL DISTRI WIDTH 13.2 % (0-14.5); WHITE BLOOD COUNT 6.7 10*3/uL (4.8-10.8)
[2018-08-28 15:54] LABS: ACT PARTIAL THROMBO TIME 24.1 SECONDS (20.8-31.5)
[2018-08-28 16:00] LABS: BUN 24 mg/dl (7-24); CHLORIDE 105 mmol/L (98-107); LIPASE 148 U/L (73-393); POTASSIUM 3.8 mmol/L (3.5-5.1); SGOT/AST 12 IU/L (3-35); SGPT/ALT 13 U/L (12-78); SODIUM 141 mmol/L (136-145)
[2018-08-28 16:01] LABS: ALKALINE PHOSPHATASE 80 U/L (45-117); TROPONIN I < 0.015 ng/ml (<0.045)
[2018-08-28 16:18] LABS: BILIRUBIN NEGATIVE (NEGATIVE); BLOOD NEGATIVE (NEGATIVE); CLARITY CLEAR (CLEAR); COLOR YELLOW (YELLOW); GLUCOSE NEGATIVE (NEGATIVE); KETONE NEGATIVE (NEGATIVE); LEUKO ESTERASE NEGATIVE (NEGATIVE); NITRITE NEGATIVE (NEGATIVE); SPECIFIC GRAVITY <= 1.005 (1.005-1.030); UROBILINOGEN 0.2 E.U./dl (0.2-1.0)
[2018-08-28 16:36] LABS: BACTERIA TRACE
[2018-08-28] MEDS ORDERED: RIVASTIGMINE T4.5 M1 PO (17:13)
--- NOTE | 2018-08-28 17:44 | NUR ---
A 83, admitted to , under the services of Dr. SAAD PAYAN,ELAINE Chauhan with a diagnosis of UNABLE TO AMBULATE, GENERALIZED WEAKNESS, DEHYDRATION. Chief complaint is BASIC NEEDS DEFICIT. Patient arrived via ambulatory from ER. Monitor applied. Initial assessment completed. Vital signs taken and recorded. DR. SAAD PAYAN,ELAINE Chauhan notified of admission to the unit. Orders received. See assessment for past medical history, medications and allergies. Patient and/or family oriented to unit. [facility] visitation policy reviewed. Clothing/patient valuable form completed. DARCI CANO
[2018-08-28 18:03] VITALS: BP 133/56
--- NOTE | 2018-08-28 18:26 | NUR ---
PT REQUESTING TO HAVE MEASUREMENTS OF BACK RASH COMPLETED AT ANOTHER TIME AND REFUSING THEM AT THIS TIME. CALL LIGHT IN REACH. BED ALARM MAINTAINED. PT SITTING UPRIGHT EATING DINNER.
[2018-08-28] MEDS ORDERED: TYLENOL EXTRA500 MG PO (18:35)
[2018-08-28 20:00] VITALS: BP 114/40
--- NOTE | 2018-08-28 21:21 | NUR ---
TYLENOL GIVEN FOR C/O BILAT SHOULDER PAIN. PT STATES SHE HAS HAD THIS FOR A LONG TIME. RATES IT 11/25. CALL LIGHT IN REACH. BED ALARM MAINTAINED WITH IVF GOING.
[2018-08-29] VITALS: BP 120/46
[2018-08-29 08:00] VITALS: BP 144/57
[2018-08-29 12:00] VITALS: BP 127/58
[2018-08-29 16:00] VITALS: BP 127/58; BP 135/65
[2018-08-29 20:00] VITALS: BP 118/52
--- NOTE | 2018-08-29 20:30 | NUR ---
PT WANDERING THROUGHUT HALLS, SEARCHING FOR BATHROOM. PT REDIRECTED BACK TO ROOM AND BATHROOM.
--- NOTE | 2018-08-29 20:32 | NUR ---
PT SITTING UP IN CHAIR AT THIS TIME, FULLY DRESSED WORKING ON WORD SEARCH. PT UNABLE TO TELL NURSE WHAT TIME OF DAY IT IS AND UNABLE TO RECALL BIRTHDAY. PT RE ORIENTED AT THIS TIME AND GIVEN SCHEDULED MEDICATION. WILL CONTINUE TO MONITOR. PT. CALL LIGHT IN REACH.
--- NOTE | 2018-08-29 20:37 | NUR ---
24 HR chart check completed.
[2018-08-30] VITALS: BP 152/63
--- NOTE | 2018-08-30 06:20 | NUR ---
PT RESTING IN BED, RESPIRATIONS EASY AND UNLABORED. NO S/S OF DISTRESS NOTED. NOT AWAKENED PER POLICY. ALL SAFETY MEASURES IN PLACE. WILL CONTINUE TO MONITOR. CALL LIGHT IN REACH.
[2018-08-30 08:00] VITALS: BP 164/70
[2018-08-30 12:00] VITALS: BP 120/41
[2018-08-30 16:00] VITALS: BP 151/57
[2018-08-30 20:00] VITALS: BP 122/70
--- NOTE | 2018-08-30 20:11 | NUR ---
1940 UP AND ABOUT IN THE ROOM. REMAINS CONFUSED, BUT PLEASANT. HEP LOCK INTACT. NO DISTRESS NOTED.
--- NOTE | 2018-08-30 20:30 | NUR ---
HS MEDS GIVEN. PT IN BED WITH LIGHTS OUT. WILL MONITOR.
--- NOTE | 2018-08-30 22:07 | NUR ---
RESTING IN BED WITH EYES CLOSED. APPEARS TO BE SLEEPING.
--- NOTE | 2018-08-30 23:00 | NUR ---
ASSUMED PATIENT CARE AT THIS TIME. PATIENT SLEEPING AT THIS TIME. BED LOCKED AND IN LOWEST POSITION. CALL RIVERA WITHIN REACH. WILL MONITOR.
[2018-08-31] VITALS: BP 147/58
--- NOTE | 2018-08-31 00:52 | NUR ---
24 HR chart check completed.
--- NOTE | 2018-08-31 07:36 | NUR ---
PATIENT MEDICATED WITH TYLENOL PER PRN ORDER FOR COMPLAINTS OF GENERALIZED ACHES AND PAINS T/O BODY. WILL MONITOR.
[2018-08-31 08:00] VITALS: BP 140/62
--- NOTE | 2018-08-31 09:00 | NUR ---
Data Examination Clerk in to talk to patient. Patient states lives at home with her younger brother, his , and their daughter. There are 5 steps in the home. Physician: Dr. Sergo Cristina Pharmacy: [facility] services: none Patient's level of ADLs: MINIMAL ASSIST Patient has working utilities: yes DME: walker Follow-up physician's appointment after d/c: she prefers to make her own follow up appt after discharge Does patient want to access PORTAL?: no Discharge plan discussed with patient. She lives at home with her younger brother, his , and their daughter. She needs minimal assistance with her ADLs and ambulates with a walker. Discussed short term SNF and she is agreeable but is unsure of where. Will speak to the family. ESTHER SANCHEZ
--- NOTE | 2018-08-31 09:00 | NUR ---
PER PATIENT, MEDICATION HAVE BEEN EFFECTIVE.
--- NOTE | 2018-08-31 11:28 | NUR ---
Met with pt and family per case management request and discussed medicaid process and referrals as well as placement decision. Provided support and called Maria E with [employer] for additional support. Provided phone numbers to daughter in law to find out status on Medicaid application. Family and pt thanked keno writer for support and information.
--- NOTE | 2018-08-31 12:52 | NUR ---
CINDY ANDERSON [id number] Please refer to the physician's history and physical for past medical history, comorbid conditions, and allergies. Diagnosis: GENERAL WEAKNESS,UNABLE TO AMBULATE,DEHYDRATION Bipin Score: 20,LOW OR NO RISK WOUND DESCRIPTIONS: ASSESSED PATIENT'S LOWER BACK. RED RASH NOTED. NO DRAINAGE NOTED. PATIENT STATES SHE WAS USING OVER THE COUNTER PAIN RELIEF PATCHES IN THIS AREA FOR BACK PAIN. PATIENT STATES CHEST IS "ITCHY". RED RASH NOTED TO THIS AREA. NO DRAINAGE NOTED. PATIENT DENIES ANY CHANGE IN BODY OR LAUNDRY SOAP. Surface the patient is resting on: Position Pro SKIN PREVENTION RECOMMENDATION: 1. Pressure redistribution support surface as appropriate 2. Elevate heels 3. Remove boots/TEDS every shift and reapply 4. Head of bed 30 degrees as tolerated 5. Assess nutrition and hydration 6. Manage moisture 7. Avoid the use of containment devices while in bed 8. Use absorptive products on surfaces limit layers of linens on bed 9. Turn and reposition every 1-2 hours in bed and every 1 hour in chair as tolerated 10. Weight shifts every 15 minutes while up in chair 11. Offloading with pillows or device to keep heels elevated off bed 12. Monitor skin at least every shift 13. Inspect under medical devices twice a day WOUND TREATMENT RECOMMENDATIONS: CLEANSE RASH AREAS TO LOWER BACK AND CHEST WITH SOAP AND WATER AND APPLY HYDROCORTINSONE 0.5% CREAM TO RASH BID.
--- NOTE | 2018-08-31 12:59 | NUR ---
Recommend follow up for wound care in outpatient setting patient refused at this time.
--- NOTE | 2018-08-31 13:11 | NUR ---
Spoke to [id number] and son who is POA at the bedside. They nor the patient want her to return to living with the younger brother and his family. She has lost 20 lbs within the last year. They were told by Dr. Cristina she would require a 3 night stay in the hospital and then the hospital would be able to place the patient in a facility. Discussed with family that is incorrect information. The hospital would be able to skill her if she qualifies. They have applied for Medicaid and are just waiting to her back from [facility] what their next step will be. They requested to speak with [facility] social secretary and [employer]. Spoke to both and both are going to visit family today. Discharge plan undecided at this time.
[2018-08-31 16:00] VITALS: BP 122/57
[2018-08-31 20:00] VITALS: BP 121/55
--- NOTE | 2018-08-31 20:04 | NUR ---
PATIENT IS RESTING IN BED WITH EASY AND REGULAR RESPERS ON ROOM AIR. ASSESSMENT IS COMPLETE WITH NO C/O OR S/S OF DISTRESS AT THIS TIME. BED IS LOW, LOCKED, ALARMED, AND CALL LIGHT IS WITHIN REACH. SEE SHIFT ASSESSMENT.
--- NOTE | 2018-08-31 22:10 | NUR ---
2200 MEDICATIONS GIVEN AT THIS TIME, PATIENT TOLERATED WELL. CALL LIGHT IS WITHIN REACH.
[2018-09-01] VITALS: BP 152/67
[2018-09-01 08:00] VITALS: BP 124/58
--- NOTE | 2018-09-01 09:00 | NUR ---
Repair Mechanic in to see patient. No new needs or request at this time. Waiting on PT/OT notes for SNF.
--- NOTE | 2018-09-01 11:25 | NUR ---
Occupational Therapy evaluation completed on 4 with full eval to follow. Precautions include low complexity level 65328 via chart review, testing and evaluation, impaired memory, pain both shoulders with decreased range of motion. Recommend OT per pOC and patient may benefit from SNF to enable max independence in ADLs. Thank you for this referral. Katelin Black OTR/l
--- NOTE | 2018-09-01 12:03 | NUR ---
PHYSICAL THERAPY PAtient evaluated on 4 this date, full evaluation to follow. Continue with PT as per plan of care with fall and alarms precautions. May require SNF. Patient is moderate complexity via chart review, tests and evaluation: [id number]. Thank you for this referral. Danii Clifford,PT
--- NOTE | 2018-09-01 15:16 | NUR ---
Spoke to [id number] and son who is POA. They would like the patient to go to [facility] SNF. environmental planner notified.
[2018-09-01 16:00] VITALS: BP 136/60
--- NOTE | 2018-09-01 16:19 | NUR ---
PT COMPLAINED OF NEW RASH ON CHEST DUE TO EXELON. CALLED DR. NASH AND HE DISCONTINUED EXELON AND PRESCRIBED ARICEPT 10MG DAILY. WILL CONTINUE TO MONITOR RASH.
[2018-09-01 20:00] VITALS: BP 128/55
--- NOTE | 2018-09-01 20:49 | NUR ---
PATIENT IS SLEEPING AND AWAKENS EASILY FOR ASSESSMENT WITH NO C/O OR S/S OF DISTRESS. ASSESSMENT IS COMPLETE BED IS LOW, LOCKED, AND CALL LIGHT IS WITHIN REACH. SEE SHIFT ASSESSMENT.
--- NOTE | 2018-09-01 22:06 | NUR ---
2200 MEDICATIONS GIVEN AT THIS TIME, PATIENT TOLERATED WELL. CALL LIGHT WITHIN REACH WILL MONITOR EFFECT.
[2018-09-02] VITALS: BP 144/62
--- NOTE | 2018-09-02 02:00 | NUR ---
PATIENT IS SLEEPING WITH EASY AND REGULAR RESPERS ON ROOM AIR. CALL LIGHT IS WITHIN REACH.
--- NOTE | 2018-09-02 07:30 | NUR ---
Patient resting quietly with no c/o discomfort. Respirations easy and regular. Vital signs stable. No overt distress. RANJANA BENSON
--- NOTE | 2018-09-02 07:43 | NUR ---
24 HR chart check completed.
[2018-09-02 08:00] VITALS: BP 159/53
--- NOTE | 2018-09-02 08:36 | NUR ---
PHYSICAL THERAPY Patient presented to therapy in sitting position in bedside chair with report of pain in the bilateral shoulders and some mild confusion. Patient agrrees to therapy session. Patient was identified by name and . Patient performed STS transfer with MIN A X 1. Patient ambulated with W/W and CGA X 1 for 180' x 1 with one episode of knee buckling that the patient corrected herself. Patient had safe turns and no significant LOB with gait. Patient performed standing balance activities including side-stepping, tandem walking, and tandem standing. Patient was able to tandem stand for 1 minutes each with 4 LOBs that she corrected by grabbing the hallway railing. Patient tolerated the gait and balance activities welll , except for 4 episodes of LOB and one knee buckling. Patient was left in sittign position in beside chair with chair alarm attached to ccahir and CYNTHIA Solomon in room with patient. PCT SCOTT was going to walk patient to restroom to change clothes. PCT SCOTT said she would put the chair alarm on patient. Patient was 1:1 with this CLIPPING MARKER for 25 minutes total. ELENITA HARRISON CLIPPING MARKER
--- NOTE | 2018-09-02 11:30 | NUR ---
OT NOTE Pt was seen this A.M. 1:1 for 25 minute OT session. Upon arrival pt was sitting upright in recliner, pt identified by name and . Pt had reports of 8/10 R shoulder pain. Pt donned socks and shoes with supervision while sitting. Functional mobility completed into the bathroom with CGA with constant verbal prompts to correct safety awareness due to being impulsive and having LOB that require Karina to correct. Pt transferred on to standard commode with CGA due to poor safety awareness with alignment and trying to sit on the side of the commode, clothing management completed with CGA due to being unsteady without UE support, and toilet hygiene completed with Karina due to complaint of increased shoulder pain. Educated pt on compensatory stratagies and pt was unable to process steps being presented to her. Pt then required Karina to for transferring off standard commode due to being lower surface. Pt then stood sink side with CGA while washing her hands and face. Also while standing sink side requested for pt to brush her hair and pt required modA due to stating she had increased pain in her R shoulder. While in the bathroom pt had LOB that occured while turning that required Karina to correct. Educated pt on safe turning techniques. Pt completed functional mobility to the EOB where she transferred sit to supine with SBA however when transferring supine to sit pt was unable. Educated pt on log rolling technique and use of bed rails for increased I in bed mobility and pt still required modA for supine to sit transfer. Pt then completed functional mobility back to recliner where she was educated on a home exercise program to increase and restore BUE ROM needed for increased I in ADL/IADL tasks, 1 X 10 completed over all planes of motion. Pt was left sitting upright in recliner with call light in hand, trya table in place, and body alarm activated for safety. Continue with rec D/C plan to SNF. TOR Ribera/Harmony
--- NOTE | 2018-09-02 12:00 | NUR ---
FAMILY AT BEDSIDE.
--- NOTE | 2018-09-02 14:57 | NUR ---
[id number] HERE INQUIRING ABOUT PLACEMENT AND WILL F/U.
--- NOTE | 2018-09-02 15:19 | NUR ---
Called and spoke with Tamera, patients daughter, explained where we are in the process of waiting for precert auth for [facility]. She stated she understood and didn't have anymore questions at this time.
--- NOTE | 2018-09-02 15:44 | NUR ---
OCCUPATIONAL THERAPY CO-SIGN I approve of the Occupational Therapy notes written above. FRANCISCO OWUSU OTR/Harmony
[2018-09-02 16:00] VITALS: BP 148/52
[2018-09-02 20:00] VITALS: BP 118/45
--- NOTE | 2018-09-02 21:46 | NUR ---
PATIENT RESTING IN BED WITH EYES CLOSED AT THIS TIME. NO SIGNS OR SYMPTOMS OF DISTRESS SEEN ON ROOM AIR. RESPIRATIONS ARE QUIET AND UNLABORED. CALL LIGHT IS WITHIN REACH OF THE PATIENT. PATIENT EASILY AWAKENS TO VOICE. PATIENT MEDICATED AT THIS TIME PER DRS ORDERS. TOLERATED PO MEDS WELL. DENIES OTHER NEEDS AT THIS TIME. CALL LGHIT WITHIN REACH, AND PATIENT INSTRUCTED TO US IF ASSISTANCE IS NEEDED. RN WILL CONTINUE TO MONITOR
[2018-09-03] VITALS: BP 147/63
[2018-09-03 08:00] VITALS: BP 133/66
--- NOTE | 2018-09-03 08:00 | NUR ---
Patient resting quietly with no c/o discomfort. Respirations easy and regular. Vital signs stable. No overt distress. RANJANA BENSON
--- NOTE | 2018-09-03 09:18 | NUR ---
OT NOTE Pt was seen this A.M. 1:1 for 20 minute OT session. Upon arrival pt was sitting upright in recliner with no body alarm on, pt identified by name and . Pt had complaints of "mild" R shoulder pain. Completed light AROM to BUE over all planes of motion for 1 X 10 to increase and restore ROM with decreased pain throughout. Pt completed functional mobility into the bathroom with CGA and use of w/w for UE support with constant verbal prompts for walker safety due to being impuslive and having poor walker navigation increasing risk of falls. Pt transferred on/off standard commode with Karina due to low surface and poor toilet alignment. Educated pt on safety techniques with toilet transfers. Pt then stood sink side while washing her face and brushing her hair, pt had LOB while reaching overhead that required Karina to correct. Throughout pt required mod verbal prompts for sequencing of steps. Pt then transferred sit to supine with SBA and supine with sit EOB with Karina with fair carry over of log rolling technique. Pt completed functional mobility back to recliner with CGA and verbal prompts to take her walker with her due to walking away without it. Pt was left sitting upright in recliner with call light in hand, tray table in place, and body alarm on for safety. Continue with rec D/C plan to SNF. TOR Ribera/Harmony
--- NOTE | 2018-09-03 10:19 | NUR ---
PHYSICAL THERAPY Patient presented to therapy in sitting in bedside chair [facility] NO CHAIR ALARM ATTACHED TO PATIENT and report of feeling good this morning. Patient agrees to therapy session. Patient was idenitfed by name and . Patient transferred STS with MIN A X 1. Patient ambulated with W/W and CGA X 1 for 150' x 1 to [facility] ,where patient ascended and descended 12 steps with CGA X 1 using hand rail on L Side. Patient ambulated another 200' x 1 with MIN A X 1 due to knee giving way at times and 2 moderate LOBs. Patient transferred to supine in bed with SBA. Patient was left in sitting position with chair alarm attached to patient after being tested with TOR NAIDU as witness. Patient was 1:1 with this DIRECTOR OF REHABILITATION for 20 minutes total. PATIENT'S call light within reach of patient. ELENITA HARRISON DIRECTOR OF REHABILITATION
[2018-09-03 12:00] VITALS: BP 142/53
--- NOTE | 2018-09-03 12:00 | NUR ---
Patient resting quietly with no c/o discomfort. Respirations easy and regular. Vital signs stable. No overt distress. RANJANA BENSON
--- NOTE | 2018-09-03 14:15 | NUR ---
Faxed updated clinicals and therapy notes to [facility]; According to the facility, the patient is independent with ambulation and does not qualify for alf. I discussed this with leather case finisher Skylar, patient and her daughter.
--- NOTE | 2018-09-03 14:30 | NUR ---
Notified Dr. Gaytan patient is independent and does not qualify for SNF.
--- NOTE | 2018-09-03 15:23 | NUR ---
Message left for Tamera, , regarding [facility] stating she doesn't qualify for SNF. Awaiting return call.
[2018-09-03 16:00] VITALS: BP 160/65
--- NOTE | 2018-09-03 16:00 | NUR ---
UP IN HALLS W/ [id number] WALKING.
[2018-09-03 17:20] VITALS: BP 140/70
[2018-09-03] MEDS ORDERED: RIVASTIGMINE TAR3 M1 PO (18:21)
--- NOTE | 2018-09-03 18:40 | NUR ---
FAMILY AND PATIENT REFUSING PHOTOS UPON DISCHARGE.
--- NOTE | 2018-09-03 18:46 | NUR ---
Discharge instructions reviewed with patient/family. Patient receptive and verbalizes understanding. Follow-up care arranged. Written instructions given to patient/family. KASEY SALINAS.
--- NOTE | 2018-09-07 07:52 | NUR ---
OCCUPATIONAL THERAPY CO-SIGN I approve of the Occupational Therapy notes written above. TAMIKA CONRAD
--- NOTE | 2018-09-14 08:28 | NUR ---
PHYSICAL THERAPY CO-SIGN I approve of the Phyical Therapy notes written above. BRUNO CONCEPCION PT
[2018-11-21] MEDS ORDERED: KEFLEX500 M1 PO (12:12)
== END 2018-09-03 18:51 | disposition home or self-care (01) | DRG 641 ==
LOC: ED 14:54 → EDHOLD 16:56 → 4E 16:56
PROVIDERS: Emergency Medicine; ADMIT Internal Medicine
DX: E86.0 Dehydration (principal); Z68.1 Body mass index [BMI] 19.9 or less, adult; E44.1 Mild protein-calorie malnutrition; F33.2 Major depressive disorder, recurrent severe without psychotic features; R53.1 Weakness; G30.1 Alzheimer's disease with late onset; F02.80 Dementia in other diseases classified elsewhere, unspecified severity, without behavioral disturbance, psychotic disturbance, mood disturbance, and anxiety; R62.7 Adult failure to thrive; L25.9 Unspecified contact dermatitis, unspecified cause; R21 Rash and other nonspecific skin eruption; E78.2 Mixed hyperlipidemia; E55.9 Vitamin D deficiency, unspecified; I12.9 Hypertensive chronic kidney disease with stage 1 through stage 4 chronic kidney disease, or unspecified chronic kidney disease; N18.3 Chronic kidney disease, stage 3 (moderate); E11.22 Type 2 diabetes mellitus with diabetic chronic kidney disease; Z88.8 Allergy status to other drugs, medicaments and biological substances; Z88.6 Allergy status to analgesic agent; Z90.710 Acquired absence of both cervix and uterus; Z90.49 Acquired absence of other specified parts of digestive tract; Z82.49 Family history of ischemic heart disease and other diseases of the circulatory system

== ENCOUNTER → 2018-09-28 | Outpatient (CLI) | payer MEDICARE ==
[~2018-09-28] MED LIST changes: +KEFLEX500 M1 PO; +RIVASTIGMINE T4.5 M1 PO; +RIVASTIGMINE TAR3 M1 PO; +TYLENOL EXTRA500 MG PO
== END | disposition home or self-care (01) ==
LOC: RAD 12:01
DX: M47.816 Spondylosis without myelopathy or radiculopathy, lumbar region (principal); M51.37 Other intervertebral disc degeneration, lumbosacral region; M43.16 Spondylolisthesis, lumbar region; M16.0 Bilateral primary osteoarthritis of hip

== ENCOUNTER → 2018-12-02 | Outpatient (CLI) | payer MEDICARE | END | disposition home or self-care (01) | LOC: US 13:20 | DX: N63.21 Unspecified lump in the left breast, upper outer quadrant (principal) ==

== ENCOUNTER 2019-06-25 20:26 | Inpatient (IN) | payer MEDICARE ==
[~2019-06-25] VITALS: Ht 162.5 cm; Wt 52.7 kg
--- NOTE | ~2019-06-25 | EKG ---
[place], [place] ELECTROCARDIOGRAM REPORT NAME: CINDY ANDERSON UNIT #: [id number] ROOM: 511 DOCTOR: LUZ ELENA DRAFT REPORT BIRTHDATE: [birth year] [facility] Test Date: 2019-06-26 Test Time: 01:23:31 Pat Name: CINDY ANDERSON Department: Room: 511 2 Gender: F Hogshead Dumper: Alli Garza : 1935 Requested By: TERRY PHILLIPS Order Number: [id number] Reading MD: Eugene Sparks MD Measurements Intervals Currie Rate: 65 P: 5 UT: 199 QRS: 34 QRSD: 77 T: -4 QT: 446 QTc: 464 Interpretive Statements Sinus rhythm Artifact Nonspecific ST changes Electronically Signed On 06-26-2019 7:09:13 PST by Eugene Sparks MD CM:EKGRPT:ELECTROCARDIOGRAM REPORT [id number] TERRY LAGUNA DRAFT REPORT TERRY PHILLIPS
[~2019-06-25 20:26] MED LIST changes: +ZESTRIL20 MG PO; -ZESTRIL40 MG PO
[2019-06-25 20:29] VITALS: BP 191/69
[2019-06-25] MEDS ORDERED: LOPERAMIDE HCL2 MG PO (20:33)
[2019-06-25] MEDS ORDERED: VITAMIN D-32000 UNI1 PO (20:34)
[2019-06-25] MEDS ORDERED: SERTRALINE HYDR50 MG PO (20:36)
[2019-06-25] MEDS ORDERED: ATORVASTATIN CA20 M1 PO (20:39)
[2019-06-25] MEDS ORDERED: DICYCLOMINE HCL10 MG PO (20:39)
[2019-06-25] MEDS ORDERED: DONEPEZIL HCL10 MG PO (20:40)
[2019-06-25] MEDS ORDERED: KLOR-CON M1010 ME1 PO (20:41)
--- NOTE | 2019-06-25 21:20 | NUR ---
AMBULATED WITH ASSISTANCE TO THE BATHROOM AND BACK TO BED. URINE OBTAINED AND SENT TO THE LAB.
--- NOTE | 2019-06-25 21:30 | NUR ---
OFF THE FLOOR FOR IMAGING.
[2019-06-25 21:33] LABS: BILIRUBIN NEGATIVE (NEGATIVE); BLOOD 1+ (NEGATIVE); CLARITY CLEAR (CLEAR); COLOR YELLOW (YELLOW); GLUCOSE NEGATIVE (NEGATIVE); KETONE NEGATIVE (NEGATIVE); LEUKO ESTERASE NEGATIVE (NEGATIVE); NITRITE NEGATIVE (NEGATIVE); UROBILINOGEN 0.2 E.U./dl (0.2-1.0)
[2019-06-25 21:39] LABS: BACTERIA TRACE; EPITHELIAL CELLS 0-2; RBC 0-2 rbc/hpf (0-2)
[2019-06-25 22:10] LABS: BASO % 0.6 % (0.0-1.0); EOS # 0.2 10*3/uL (0.0-0.4); EOS % 3.2 % (1.0-4.0); HEMATOCRIT 39.2 % (37.0-47.0); HEMOGLOBIN 12.5 g/dl (12.0-16.0); LYMPH # 2.1 10*3/uL (1.3-4.4); LYMPH % 32.8 % (27.0-41.0); MEAN CELL VOLUME 87.1 fl (81.0-99.0); MEAN CORPUSCULAR HGB 27.8 pg (27.0-31.0); MEAN CORPUSCULAR HGB CONC 31.9 g/dl (33.0-37.0); MEAN PLATELET VOLUME 9.4 fl (9.6-12.3); MONO # 0.6 10*3/uL (0.1-1.0); MONO % 8.8 % (3.0-9.0); NEUT # 3.5 10*3/uL (2.3-7.9); NEUT % 54.3 % (47.0-73.0); PLATELET COUNT AUTOMATED 241 10*3/uL (130-400); RED CELL DISTRI WIDTH 14.6 % (0-14.5); WHITE BLOOD COUNT 6.5 10*3/uL (4.8-10.8)
--- NOTE | 2019-06-25 22:23 | NUR ---
PRE-EXISTING DRESSING TO LEFT ELBOW REMOVED. SMALL (APPROX 1 CM) SKIN TEAR WITH SCANT DRIED BLOOD NOTED. WAOUND CLEANSED WITH STERILE WATER, WHICH STUNG. AREA DRIEDA ND NON ADHERENT DRESSING WITH ABD OVERLAY AND KERLIX APPLIED. TOLERATED WELL. UP SITTING IN CHAIR AT THIS TIME.
[2019-06-25 22:29] LABS: ALBUMIN 3.7 gm/dl (3.1-4.5); CREATININE 1.14 mg/dL (0.55-1.02); POTASSIUM 4.1 mmol/L (3.5-5.1)
--- NOTE | 2019-06-25 22:42 | NUR ---
TAKEN FOR IMAGING.
--- NOTE | 2019-06-25 23:01 | NUR ---
REPORT TO JOSE YARBROUGH.
[2019-06-26] VITALS (8 sets, daily range): BP systolic 130–178; BP diastolic 58–90
--- NOTE | 2019-06-26 00:15 | NUR ---
AMBULATING IN ROOM WITHOUT DIFFICULTY WITH SUPERVISION OF DAUGHTER IN LAW. NO COMPLAINTS AT THIS TIME. GAIT STEADY.
--- NOTE | 2019-06-26 00:37 | NUR ---
DR PHILLIPS AT BEDSIDE.
--- NOTE | 2019-06-26 01:00 | NUR ---
A 84, admitted to , under the services of EDITA Alex DO with a diagnosis of DEMENTIA,GENERALIZED WEAKNESS,FALL, DEHYDRATION. Chief complaint is FALL. Patient arrived via wheel chair from ER. Monitor applied. Initial assessment completed. Vital signs taken and recorded. EDITA ALEX DO notified of admission to the unit. Orders received. See assessment for past medical history, medications and allergies. Patient and/or family oriented to unit. [facility] visitation policy reviewed. Clothing/patient valuable form completed. ZENON FERGUSON
[2019-06-26] MEDS ORDERED: ARTHRITIS PAIN650 M3 PO (03:01)
[2019-06-26] MEDS ORDERED: MEMANTINE HCL E28 MG PO (03:09)
[2019-06-26] MEDS ORDERED: DICYCLOMINE HCL10 MG PO (03:10)
[2019-06-26] MEDS ORDERED: LOPERAMIDE HCL2 MG PO (03:11)
[2019-06-26] MEDS ORDERED: POTASSIUM CHLO10 ME4 PO (03:12)
--- NOTE | 2019-06-26 03:30 | NUR ---
PT REFUSING TO WEAR SOLAR ENERGY SYSTEMS DESIGNER. AWARE.
--- NOTE | 2019-06-26 04:00 | NUR ---
DR THAKUR NOTIFIED THAT PT MED REC IS UP TO DATE, WOUND CARE ORDERS RECEIVED ON SKIN TEAR TO [facility].
--- NOTE | 2019-06-26 12:44 | NUR ---
DR SHEARER CALLED ABOUT BLOOD PRESSURE - ORDER FOR 10mg OI HYDRALAZINE X1 NOW AND TO MONITOR BLOOD PRESSURE
--- NOTE | 2019-06-26 13:15 | NUR ---
HYDRALAZINE GIVEN - PT SITTING ON SIDE OF BED EATING LUNCH. DENIES C/O.... CALL LIGHT & IMPORTANCE OF USING IT REVIEWED
--- NOTE | 2019-06-26 18:15 | NUR ---
PATIENT PULLEDOUT IV AGAIN. PER DISCUSSION WITH DR LEUNG EARLIEROK TO LEAVE IV OUT IF PATIENT IS TAKING PO LIQUIDS WELL & SHE IS
--- NOTE | 2019-06-26 20:16 | NUR ---
PT DAUGHTER IN LAW FORREST HAS COME IN AT THIS TIME TO SEE PATIENT AND TO HELP RE ORIENT HER TO THE FACILITY AND THE PURPOSE OF HER BEING HERE. DR CLEMONS NOTIFIED THAT PT DAUGHTER IN LAW IS OKAY WITH PATIENT TAKING SOMETHING TO HELP KEEP HER CALM THROUGHOUT THE NIGHT. PHYSICIAN RECOMMENDS TRYING THE PRN RESTORIL THAT IS ON PT EMAR TO HELP HER SLEEP AND THAT WE WILL GO FROM THERE.
--- NOTE | 2019-06-26 20:49 | NUR ---
PT SITTING UP IN BED. ALERT WITH CONFUSION. PT ORIENTED TO PERSON,PLACE,TIME, AND SITUATION. ASSESSMENT COMPLETE AT THIS TIME. PT GIVEN HS MEDICATIONS AND GIVEN RESTORIL TO HELP HER SLEEP/RELAX. WILL MONITOR FOR EFFECTIVENESS OF MEDICATION. PT ASSISTED BACK TO BED. ALL SAFETY MEASURES IN PLACE. CALL LIGHT IN REACH. PT REMINDED TO TRY TO USE CALL LIGHT BEFORE TRYING TO GET OUT OF BED ON HER OWN.
--- NOTE | 2019-06-26 21:49 | NUR ---
RESTORIL EFFECTIVE. PT RESTING IN BED AT THIS TIME. RESPIRATIONS EASY AND UNLABORED. SAFETY MEASURES IN PLACE, CALL LIGHT IN REACH.
--- NOTE | 2019-06-26 23:46 | NUR ---
PT RESTING, NO S/S OF DISTRESS. BED ALARM IN PLACE, CALL LIGHT IN REACH.
[2019-06-27] VITALS: BP 150/59
--- NOTE | 2019-06-27 02:47 | NUR ---
PT RESTING AT THIS TIME. RESPIRATIONS EASY AND UNLABORED ON ROOM AIR. HOB ELEVATED SLIGHTLY. ALL SAFETY MEASURES IN PLACE. NO ABNORMALITIES NOTED. CALL LIGHT IN REACH.
--- NOTE | 2019-06-27 06:03 | NUR ---
PT RESTING IN BED AT THIS TIME. RESPIRATIONS EASY AND UNLABORED ON ROOM AIR. NO S/S OF DISTRESS. SAFETY MEASURES IN PLACE. CALL LIGHT IN REACH.
[2019-06-27 06:12] LABS: BASO # 0.1 10*3/uL (0.0-0.1); BASO % 0.8 % (0.0-1.0); EOS # 0.2 10*3/uL (0.0-0.4); EOS % 2.9 % (1.0-4.0); HEMATOCRIT 40.5 % (37.0-47.0); HEMOGLOBIN 13.1 g/dl (12.0-16.0); LYMPH # 1.9 10*3/uL (1.3-4.4); LYMPH % 29.7 % (27.0-41.0); MEAN CELL VOLUME 87.1 fl (81.0-99.0); MEAN CORPUSCULAR HGB 28.2 pg (27.0-31.0); MEAN CORPUSCULAR HGB CONC 32.3 g/dl (33.0-37.0); MEAN PLATELET VOLUME 9.6 fl (9.6-12.3); MONO # 0.5 10*3/uL (0.1-1.0); MONO % 8.5 % (3.0-9.0); NEUT # 3.6 10*3/uL (2.3-7.9); NEUT % 57.6 % (47.0-73.0); PLATELET COUNT AUTOMATED 244 10*3/uL (130-400); RED BLOOD COUNT 4.65 10*6/uL (4.10-5.10); RED CELL DISTRI WIDTH 14.6 % (0-14.5); WHITE BLOOD COUNT 6.3 10*3/uL (4.8-10.8)
[2019-06-27 06:22] LABS: ALBUMIN 3.6 gm/dl (3.1-4.5); BUN 16 mg/dl (7-24); CHLORIDE 105 mmol/L (98-107); CHOLESTEROL 174 mg/dL (<200); CREATININE 0.92 mg/dL (0.55-1.02); PHOSPHOROUS 3.5 mg/dL (2.5-4.9); POTASSIUM 3.5 mmol/L (3.5-5.1); SGOT/AST 15 IU/L (3-35); SGPT/ALT 16 U/L (12-78); SODIUM 140 mmol/L (136-145)
[2019-06-27 06:30] LABS: ALKALINE PHOSPHATASE 55 U/L (45-117); FREE T4 0.84 ng/dl (0.76-1.46); HDL CHOLESTEROL 75 mg/dl (40-60); LDL CHOLESTEROL 78 mg/dL (9-159); TOTAL PROTEIN 6.9 gm/dL (6.4-8.2); TRIGLYCERIDES 107 mg/dl (<150); VLDL CHOLESTEROL 21 mg/dL (6-40)
[2019-06-27 07:41] VITALS: BP 98/50
[2019-06-27 08:00] VITALS: BP 124/50; BP 170/60
[2019-06-27 08:19] LABS: VITAMIN D, 25-HYDROXY 47.4 ng/mL (30-100)
--- NOTE | 2019-06-27 09:58 | NUR ---
FAMILY AWARE OF DISCHARGE - THEY ARE ON THEIR WAY TO PICK HER UP SOME CLEAN CLOTHES. PT SITTING IN CHAIR ANXIOUS TO GO HOME & MORE ALERT TODAY
--- NOTE | 2019-06-27 11:38 | NUR ---
Discharge instructions reviewed with patient/family. Patient receptive and verbalizes understanding. Follow-up care arranged. Written instructions given to patient/family. TAKEN TO [facility] BY [id number] JIMI BAUER
--- NOTE | 2019-06-28 14:42 | NUR ---
PHYSICAL THERAPY Physical therapy order received 06/26/19 and chart reviewed. Patient discharged on 06/27/19. PT evaluation not performed due to discharge. Thank you. Skylar Carroll,PT, DPT
== END 2019-06-27 13:04 | disposition home or self-care (01) | DRG 199 ==
LOC: ED 20:26 → EDHOLD 06-26 00:32 → 5E 06-26 00:49
PROVIDERS: Nurse Practitioner Family; Student in an Organized Health Care Education/Training Program; ADMIT Emergency Medicine
DX: I16.0 Hypertensive urgency (principal); E43 Unspecified severe protein-calorie malnutrition; N17.0 Acute kidney failure with tubular necrosis; E86.0 Dehydration; R53.1 Weakness; E78.5 Hyperlipidemia, unspecified; E55.9 Vitamin D deficiency, unspecified; G30.9 Alzheimer's disease, unspecified; F02.80 Dementia in other diseases classified elsewhere, unspecified severity, without behavioral disturbance, psychotic disturbance, mood disturbance, and anxiety; R31.9 Hematuria, unspecified; N18.3 Chronic kidney disease, stage 3 (moderate); I12.9 Hypertensive chronic kidney disease with stage 1 through stage 4 chronic kidney disease, or unspecified chronic kidney disease; R26.2 Difficulty in walking, not elsewhere classified; Z66 Do not resuscitate; Z51.5 Encounter for palliative care; I95.1 Orthostatic hypotension; S51.012A Laceration without foreign body of left elbow, initial encounter; E11.22 Type 2 diabetes mellitus with diabetic chronic kidney disease; F32.9 Major depressive disorder, single episode, unspecified; W18.30XA Fall on same level, unspecified, initial encounter; Y93.89 Activity, other specified; Y92.89 Other specified places as the place of occurrence of the external cause; Y99.8 Other external cause status; Z90.710 Acquired absence of both cervix and uterus; Z82.49 Family history of ischemic heart disease and other diseases of the circulatory system; Z88.6 Allergy status to analgesic agent; Z88.8 Allergy status to other drugs, medicaments and biological substances; Z91.09 Other allergy status, other than to drugs and biological substances; Z79.899 Other long term (current) drug therapy

== ENCOUNTER 2019-06-30 21:57 | Inpatient (IN) | payer MEDICARE ==
[~2019-06-30] VITALS: Ht 162.6 cm; Wt 53.7 kg
[~2019-06-30 21:57] MED LIST changes: +ARTHRITIS PAIN650 M3 PO; +ATORVASTATIN CA20 M1 PO; +DICYCLOMINE HCL10 MG PO; +DONEPEZIL HCL10 MG PO; +KLOR-CON M1010 ME1 PO; +LOPERAMIDE HCL2 MG PO; +MEMANTINE HCL E28 MG PO; +POTASSIUM CHLO10 ME4 PO; +SERTRALINE HYDR50 MG PO; +VITAMIN D-32000 UNI1 PO
[2019-06-30 21:59] VITALS: BP 135/80
[2019-06-30 22:32] LABS: BASO % 0.5 % (0.0-1.0); EOS # 0.2 10*3/uL (0.0-0.4); EOS % 1.9 % (1.0-4.0); HEMATOCRIT 36.2 % (37.0-47.0); HEMOGLOBIN 11.9 g/dl (12.0-16.0); LYMPH # 1.6 10*3/uL (1.3-4.4); LYMPH % 19.6 % (27.0-41.0); MEAN CELL VOLUME 86.4 fl (81.0-99.0); MEAN CORPUSCULAR HGB 28.4 pg (27.0-31.0); MEAN CORPUSCULAR HGB CONC 32.9 g/dl (33.0-37.0); MEAN PLATELET VOLUME 9.5 fl (9.6-12.3); MONO # 0.6 10*3/uL (0.1-1.0); MONO % 7.5 % (3.0-9.0); NEUT # 5.6 10*3/uL (2.3-7.9); NEUT % 70.2 % (47.0-73.0); PLATELET COUNT AUTOMATED 231 10*3/uL (130-400); RED BLOOD COUNT 4.19 10*6/uL (4.10-5.10); RED CELL DISTRI WIDTH 14.4 % (0-14.5)
[2019-06-30 22:41] LABS: INTERNATIONAL NORM RATIO 0.9 (2.0-3.5)
[2019-06-30 22:49] LABS: ALBUMIN 3.7 gm/dl (3.1-4.5); ALKALINE PHOSPHATASE 52 U/L (45-117); BUN 24 mg/dl (7-24); CHLORIDE 107 mmol/L (98-107); CREATININE 1.13 mg/dL (0.55-1.02); SGOT/AST 16 IU/L (3-35); SGPT/ALT 19 U/L (12-78); SODIUM 140 mmol/L (136-145); TOTAL PROTEIN 6.9 gm/dL (6.4-8.2)
[2019-06-30 22:50] LABS: TROPONIN I < 0.015 ng/ml (<0.045)
[2019-06-30 23:19] LABS: BILIRUBIN NEGATIVE (NEGATIVE); BLOOD 1+ (NEGATIVE); CLARITY CLEAR (CLEAR); COLOR YELLOW (YELLOW); GLUCOSE NEGATIVE (NEGATIVE); KETONE NEGATIVE (NEGATIVE); LEUKO ESTERASE NEGATIVE (NEGATIVE); NITRITE NEGATIVE (NEGATIVE); UROBILINOGEN 0.2 E.U./dl (0.2-1.0)
[2019-07-01 00:37] VITALS: BP 136/74
[2019-07-01 01:00] VITALS: BP 183/63
--- NOTE | 2019-07-01 01:00 | NUR ---
Time: 99 A 84 year old FEMALE admitted to 4E under services of SONDRA RAY DO, Pt. arrived via stretcher from ER. Chief complaint: CAME IN WITH C/O INCREASE IN CONFUSION. WEN GARCIA
--- NOTE | 2019-07-01 01:30 | NUR ---
MED REC UPDATED WITH LIST FROM [facility].
--- NOTE | 2019-07-01 02:50 | NUR ---
LEFT MESSAGE WITH [facility] REGARDING CONSULT ORDER.
[2019-07-01 07:07] LABS: BUN 16 mg/dl (7-24); CHLORIDE 109 mmol/L (98-107); CREATININE 0.94 mg/dL (0.55-1.02); POTASSIUM 4.1 mmol/L (3.5-5.1); SODIUM 141 mmol/L (136-145)
--- NOTE | 2019-07-01 07:57 | NUR ---
PATIENT TAKEN DOWN FOR SCHEDULED KUB.
[2019-07-01 08:00] VITALS: BP 180/68
--- NOTE | 2019-07-01 09:00 | NUR ---
PT ALERT AND ORIENTED X2. DISORIENTED TO TIME. ATTEMPTED TO REORIENT: UNSUCCESSFUL. PT CALM AND COOPERATIVE WITH CARE. ASSIST OOB X1 DUE TO RECENT FALL. BED ALARM MAINTAINED FOR SAFETY. WILL CONTINUE TO MONITOR. CALL LIGHT WITHIN REACH.
--- NOTE | 2019-07-01 10:00 | NUR ---
SKIN TEAR NOTED TO LEFT ELBOW. DOCUMENTATION AND PHOTO WILL BE OBTAINED PER POLICY. WILL NOTIFY REGARDING WOUND TREATMENT.
[2019-07-01 10:31] VITALS: BP 142/46
--- NOTE | 2019-07-01 11:38 | NUR ---
NOTIFIED REGARDING WOUND RECOMMENDATIONS. NEW ORDERS RECEIVED.
[2019-07-01 12:00] VITALS: BP 156/56
--- NOTE | 2019-07-01 12:49 | NUR ---
REBEKAH received call from [facility] stating pt will need a prior auth. REBEKAH informed the Assisted Living Assistant. -REBEKAH Dickinson
--- NOTE | 2019-07-01 14:31 | NUR ---
NOTIFIED REGARDING PATIENTS ANXIETY. NEW ORDERS TO BE ENTERED.
--- NOTE | 2019-07-01 15:37 | NUR ---
case management called [facility] regarding an authorization for U stay, spoke to Beth, patient authorized for 4 days
--- NOTE | 2019-07-01 15:46 | NUR ---
Occupational THerapy referral received and chart reviewed. Patient to be transferred to [facility] when insurance authorization received. Katelin Black OTR/L
[2019-07-01 16:00] VITALS: BP 178/64
--- NOTE | 2019-07-01 17:08 | NUR ---
THIS NURSE CALLED [facility] REGARDING NURSE TO NURSE REPORT.
--- NOTE | 2019-07-01 17:08 | NUR ---
FAMILY NOTIFIED REGARDING U DISCHARGE.
[2019-07-01] MEDS ORDERED: ALENDRONATE SOD35 M1 PO (17:12)
[2019-07-01] MEDS ORDERED: ARTHRITIS PAIN650 M3 PO (17:14)
[2019-07-01] MEDS ORDERED: LIPITOR20 MG PO (17:15)
[2019-07-01] MEDS ORDERED: DICYCLOMINE HCL10 MG PO (17:16)
--- NOTE | 2019-07-01 17:17 | NUR ---
Discharge instructions reviewed with patient/family. Patient receptive and verbalizes understanding. Follow-up care arranged. Written instructions given to patient/family. KASEY SALINAS.
[2019-07-01] MEDS ORDERED: DONEPEZIL HCL10 MG PO (17:18)
[2019-07-01] MEDS ORDERED: LISINOPRIL20 MG PO (17:18)
[2019-07-01] MEDS ORDERED: DIAMODE2 MG PO (17:19)
[2019-07-01] MEDS ORDERED: NAMENDA10 MG PO (17:19)
[2019-07-01] MEDS ORDERED: ZOLOFT50 MG PO (17:20)
[2019-07-01] MEDS ORDERED: POTASSIUM CHLO10 ME5 PO (17:20)
[2019-07-01] MEDS ORDERED: VITAMIN D-32000 UNI1 PO (17:22)
== END 2019-07-01 17:17 | disposition home health service (06) | DRG 70 ==
LOC: ED 21:57 → 4E 07-01 00:20 → EDHOLD 07-01 00:20 → EDBEDREQ 07-01 00:36 → 4E 07-01 00:36
PROVIDERS: Physician Assistant; Student in an Organized Health Care Education/Training Program; ADMIT Internal Medicine
DX: G93.41 Metabolic encephalopathy (principal); N17.0 Acute kidney failure with tubular necrosis; E44.1 Mild protein-calorie malnutrition; F02.81 Dementia in other diseases classified elsewhere, unspecified severity, with behavioral disturbance; F33.2 Major depressive disorder, recurrent severe without psychotic features; F63.81 Intermittent explosive disorder; R41.9 Unspecified symptoms and signs involving cognitive functions and awareness; D64.9 Anemia, unspecified; E78.5 Hyperlipidemia, unspecified; R01.1 Cardiac murmur, unspecified; E55.9 Vitamin D deficiency, unspecified; G30.9 Alzheimer's disease, unspecified; Z66 Do not resuscitate; Z51.5 Encounter for palliative care; N18.3 Chronic kidney disease, stage 3 (moderate); M85.80 Other specified disorders of bone density and structure, unspecified site; I12.9 Hypertensive chronic kidney disease with stage 1 through stage 4 chronic kidney disease, or unspecified chronic kidney disease; E11.22 Type 2 diabetes mellitus with diabetic chronic kidney disease; E11.65 Type 2 diabetes mellitus with hyperglycemia; Z88.8 Allergy status to other drugs, medicaments and biological substances; Z88.6 Allergy status to analgesic agent; Z90.710 Acquired absence of both cervix and uterus; Z90.49 Acquired absence of other specified parts of digestive tract; Z82.49 Family history of ischemic heart disease and other diseases of the circulatory system; Z91.018 Allergy to other foods; Z79.899 Other long term (current) drug therapy; Z68.20 Body mass index [BMI] 20.0-20.9, adult

== ENCOUNTER 2019-07-01 16:52 | Inpatient (IN) | payer MEDICARE ==
[~2019-07-01] VITALS: Ht 162.5 cm; Wt 53.7 kg
[2019-07-01] MEDS ORDERED: ALENDRONATE SOD35 M1 PO (17:12)
[2019-07-01] MEDS ORDERED: ARTHRITIS PAIN650 M3 PO (17:14)
[2019-07-01] MEDS ORDERED: LIPITOR20 MG PO (17:15)
[2019-07-01] MEDS ORDERED: DICYCLOMINE HCL10 MG PO (17:16)
[2019-07-01] MEDS ORDERED: DONEPEZIL HCL10 MG PO (17:18)
[2019-07-01] MEDS ORDERED: LISINOPRIL20 MG PO (17:18)
[2019-07-01] MEDS ORDERED: NAMENDA10 MG PO (17:19)
[2019-07-01] MEDS ORDERED: DIAMODE2 MG PO (17:19)
[2019-07-01] MEDS ORDERED: ZOLOFT50 MG PO (17:20)
[2019-07-01] MEDS ORDERED: POTASSIUM CHLO10 ME5 PO (17:20)
--- NOTE | 2019-07-01 17:20 | NUR ---
CINDY ANDERSON a 84 year old F admitted via wheel chair from the 4TH FLOOR [facility] as a voluntary admission. Arrived on unit at 1720. ALLERGIES: STATINS, ASA, CANDESARTAN, FUROSEMIDE, METOPROLOL, NISOLDIPINE, QUINAPRIL, POTASSIUM CHLORIDE, HYDROCHLOCOT, FOSENOPRIL, PINE TREES. Vital signs are: 98.4, 81, 20, 160/82, 100% RA. The POA, ELENITA MONICA, VERBALLY CONSENTED VIA PHONE the following forms with stated understanding: Authorization For The Release of Medical Information, Clothing List, Consent to Voluntary Admission and Hospitalization, Consent and Release Forms/Receipt of Rights, Acknowledgement of Advance Directive Information, Behavioral Health Consent Form, and Informed Consent of Medications. Admitted under the services of Dr. MARS PAYAN,[facility]. A search was conducted and hazardous articles were removed. Client was oriented to the unit. DOROTHY RICHARDSON
[2019-07-01] MEDS ORDERED: VITAMIN D-32000 UNI1 PO (17:22)
--- NOTE | 2019-07-01 17:28 | NUR ---
DR. HERRERA NOTIFIED OF NEW ADMISSION, ORDERS TO PUT NEW CONSULT UNDER DR. DALAL
[2019-07-01 17:40] VITALS: BP 160/82
[2019-07-01 17:45] VITALS: BP 160/82
[2019-07-01 19:12] VITALS: BP 152/84
[2019-07-01 19:35] VITALS: BP 152/84
[2019-07-01 20:30] VITALS: BP 152/84
--- NOTE | 2019-07-01 20:30 | NUR ---
P--IRRITABLE/AGGITATED, FEARFULL, DISORIENTED I-TRIED TO DO ADMISSION WITH CLIENT, SKIN CHECK (REFUSED) MME (REFUSED) CRISIS INTERVENTION (REFUSED). REFUSED DISCUSSING HER SUICIDAL LETTER, CHANGING OUT OF STREET CLOTHES (DONE) R--OH JUST GREAT A NURSE TO WAKE ME IN THE MIDDLE OF THE NIGHT. FINE TAKE MY CLOTHES BUT IT IS RIDICULOUS THEY WERE CLEAN THIS MORNING. DON'T LOOK AT MY SKIN OR MY SORE IT IS NONE OF YOUR BUSINESS. I DON'T KNOW WHAT YEAR IT IS AND I DON'T CARE. THIS IS MY FRIENDS HOUSE [facility]. I DON'T TRUST YOU I DON'T KNOW YOU. WHO ORDERED THESE MEDICINES, THERE IS NOTHING WRONG WITH ME P--OFFER EMOTIONAL SUPPORT FOR SIGNS OF FEAR. REORIENT MUCH POSSIABLE. CONTINUE EMOTIONAL SUPPORT FOR MED PASS. EDUCATE ON MEDICATIONS AND WHY SHE IS HERE
--- NOTE | 2019-07-01 21:49 | NUR ---
REFUSED ORAL CARE.
--- NOTE | 2019-07-01 22:17 | NUR ---
AWAKE IN BED. CONTINUES TO REFUSE TO INTERACT WITH STAFF. WILL CONTINUE TO MONITOR
--- NOTE | 2019-07-02 03:47 | NUR ---
24 HR chart check completed.
--- NOTE | 2019-07-02 05:24 | NUR ---
resident here then left. no orders recived
--- NOTE | 2019-07-02 06:14 | NUR ---
UP AND DRESSED WITH WOUND CARE. SITTING IN DININGROOM.
--- NOTE | 2019-07-02 06:15 | NUR ---
CINDY ANDERSON [id number] Please refer to the physician's history and physical for past medical history, comorbid conditions, and allergies. Diagnosis: MAJOR DEPRESSION RECURRENT SEVERE Bipin Score: 21,LOW OR NO RISK WOUND DESCRIPTIONS: Wound Number: 1 Location of the wound: Left elbow Type of wound: skin tear Thickness: Partial Size: 1.5cm x 1.0cm x 0.1cm Tunneling: none Undermining: none Sinus Tract: none Presence of Exudate: Serosanguineous Amount: Light Color: Red Odor: None Periwound Skin Appearance: Normal Wound edges: approximated Pain (associated with wound): none at time of assessment How does patient state this happened? pt stated she hit on something Surface the patient is resting on: Proform SKIN PREVENTION RECOMMENDATION: 1. Pressure redistribution support surface as appropriate 2. Elevate heels 3. Remove boots/TEDS every shift and reapply 4. Head of bed 30 degrees as tolerated 5. Assess nutrition and hydration 6. Manage moisture 7. Avoid the use of containment devices while in bed 8. Use absorptive products on surfaces limit layers of linens on bed 9. Turn and reposition every 1-2 hours in bed and every 1 hour in chair as tolerated 10. Weight shifts every 15 minutes while up in chair 11. Offloading with pillows or device to keep heels elevated off bed 12. Monitor skin at least every shift 13. Inspect under medical devices twice a day WOUND TREATMENT RECOMMENDATIONS: Skin tear guidelines: Cleanse left elbow with nss and apply sureprep around the wound hydrogel to wound bed and cover with optifoam gentle
--- NOTE | 2019-07-02 06:44 | NUR ---
SLEPT A POOR BROKEN 8 HOURS
--- NOTE | 2019-07-02 07:15 | NUR ---
Occupational Therapy evaluation completed on 3 with full eval to follow. PRecautions include fall risk,3N unit precautions, impaired cognition, low complexity level [id number] via chart review, testing and evaluation. Recommend OT per pOC and return to assisted living upon d/c. Thank you. César Black OTR/l
[2019-07-02 07:51] LABS: ALBUMIN 3.7 gm/dl (3.1-4.5); ALKALINE PHOSPHATASE 53 U/L (45-117); BUN 17 mg/dl (7-24); CHLORIDE 107 mmol/L (98-107); CHOLESTEROL 169 mg/dL (<200); CREATININE 1.01 mg/dL (0.55-1.02); HDL CHOLESTEROL 74 mg/dl (40-60); LDL CHOLESTEROL 77 mg/dL (9-159); POTASSIUM 3.6 mmol/L (3.5-5.1); SGOT/AST 15 IU/L (3-35); SGPT/ALT 16 U/L (12-78); SODIUM 142 mmol/L (136-145); TOTAL PROTEIN 7.1 gm/dL (6.4-8.2); TRIGLYCERIDES 92 mg/dl (<150); VLDL CHOLESTEROL 18 mg/dL (6-40)
[2019-07-02 08:00] VITALS: BP 133/72
--- NOTE | 2019-07-02 08:30 | NUR ---
Treatment Plan meeting with Dr. Pastor, RN, AT, HAND THERMAL CUTTER and [employer]. Plan for discharge Next Week. Pt. came to [facility] from [facility]. Will reach out to facility today to discuss discharge Planning.
--- NOTE | 2019-07-02 08:58 | NUR ---
Left Message for Nurse at [facility] to Discuss Discharge Plans. Clinical Updates faxed to [facility] Attn: Nurse [phone].
[2019-07-02 09:11] LABS: VITAMIN D, 25-HYDROXY 47.8 ng/mL (30-100)
--- NOTE | 2019-07-02 10:25 | NUR ---
PT MEDICATION COMPLIANT, ALERT TO SELF AT THIS TIME. STATED SHE DOESN'T KEEP TRACK OF THE DATES ANYMORE, PT STATED SHE KNEW SHE WAS IN THE HOSPITAL BUT UNSURE WHY. AT THIS TIME SHE HAS BEEN MEDICATION COMPLIANT, COOPERATIVE, NOT INTERACTIVE WITH PEERS, WILL SPEAK WITH STAFF WHEN SPOKEN TO. AT THIS TIME PT IS IN HER ROOM RESTING QUIETLY. CONTINUE TO MONITOR 15 MIN CHECKS.
--- NOTE | 2019-07-02 10:49 | NUR ---
Spoke with Meeta Nurse at [facility]. Pt. will return to facility at discharge. Meeta states that "Patient had a fall at facility and has had behaviors and change in personality ever since" Pt. was sent to [facility] for evaluation and work up and returned to [facility]. "Pt. has been aggressive and just not herself since the fall". "Pt. baseline is very confused but has always been pleasant and cooperative". Clinical Updates faxed to [facility] [phone] Attn: Nurse.
--- NOTE | 2019-07-02 11:52 | NUR ---
AM GROUP PT ATTENDED MORNING GROUP THERAPY AND PARTICIPATED BY COLORING. PT WAS QUIET AND ON TASK. PT EXHIBITED NO AGITATION OR AGGRESSION WHILE IN GROUP
--- NOTE | 2019-07-02 13:31 | NUR ---
SPOKE WITH PT SON, STATED THAT SHE REACTES SEVERALY TO THE ADHESIVE ON THE EXELON PATCH, RAISED RED WELTS APPEAR. PHARMACY MADE AWARE, ADDED TO ADVERSE REACTION LIST AT THIS TIME
--- NOTE | 2019-07-02 14:41 | NUR ---
PHYSICAL THERAPY Attempted to see pt for evaluation, but just returned to bed and sleeping soundly, will follow. Alba Jacob PT
--- NOTE | 2019-07-02 15:21 | NUR ---
Spoke with pt's son Crow Avilez and provided him with an update. Offered to schedule a family meeting. Nothing was scheduled at this time. Crow stated that he planned on visiting pt tomorrow.
--- NOTE | 2019-07-02 15:28 | NUR ---
Nutritional Support Services Note: Pt has a wound to left elbow. 1800cal diet as ordered. Recommend Glucerna OS po TID with meals. Encourage intake. Assist with meals as needed. Nataliia Deal Rdn Ld
[2019-07-02 19:13] VITALS: BP 135/62
--- NOTE | 2019-07-02 21:15 | NUR ---
Patient alert to self with confusion noted. Patient isolative to her room. Interacts when spoken to by staff only. Patient cooperative with staff. Patient compliant with medications without any difficulty. Provided 1:1 for emotional support. Redirected/reoriented when needed/appropriate. Plan to continue to encourage medication compliance and provide emotional support. Also redirect/reorient when needed/appropriate and also encourage more interaction with staff and other patients. Q 15 minute safety checks continued and maintained. See [facility] flowsheet for further documentation.
--- NOTE | 2019-07-03 00:19 | NUR ---
24 HR chart check completed.
--- NOTE | 2019-07-03 05:54 | NUR ---
Patient slept approx. 10 hours throughout shift. Q 15 minute safety checks continued and maintained.
[2019-07-03 07:23] VITALS: BP 145/58
--- NOTE | 2019-07-03 10:23 | NUR ---
P: DEPRESSED MOOD ISOLATIVE AND WITHDRAWN TO SELF. I: ONE ON ONE, REORIENTATION/REDIRECTION, ENCOURAGE GROUP PARTICIPATION R: PATIENT INTERACTIVE WITH STAFF. PATIENT RESTING IN BED, DID NOT PARTICIPATE IN GROUP SESSION. PATIENT IS ALERT TO PERSON WITH CONFUSION. SHORT TERM MEMORY DEFICITS. ABLE TO VOICE NEEDS. ADMITS TO BEING DEPRESSED WITH FLAT AFFECT. DENIES ANY HALLUCINATIONS, DELUSIONS, HI/SI OR PAIN. Q 15 MINUTE SAFETY CHECKS MAINTAINED. MEDICATION COMPLAINT WITH EDUCATION PROVIDED. 1 PERSON ASSIST WTIH CUEING WITH ACTIVITIES OF DAILY LIVING. CONTINENT OF BOWEL AND BLADDER. SET UP FOR MEALS, INTAKE ARE FAIR WITH ADEQUATE FLUIDS. AMBULATORY WITH STEADY GAIT. P: CONTINUE TO MONITOR MOOD AND VOICED THOUGHTS OF SI. PROVIDE ONE ON ONE FOR EMOTIONAL SUPPORT. ENCOURAGE PATIENT TO PARTICIPATE IN GROUP SESSION. REORIENT TO PLACE AND SITUATION NEEDED.
--- NOTE | 2019-07-03 11:09 | NUR ---
Patient resting quietly with no c/o discomfort. Respirations easy and regular. Vital signs stable. No overt distress. MEHRDAD MEJIA
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
--- NOTE | 2019-07-03 15:22 | NUR ---
Shift chart check completed.
--- NOTE | 2019-07-03 15:42 | NUR ---
DR. DALAL ON UNIT TO ASSESS PATIENT.
--- NOTE | 2019-07-03 16:02 | NUR ---
PM GROUP/WaterBear Soft/MUSIC/LANCE GAMES PT ATTENDED AND PARTICIPATED IN GROUP. PT MORE TALKATIVE THIS AFTERNOON AND MORE INTERESTED IN WaterBear Soft PROJECT AND A FLOWER PICTURE BOOK. PT ATTEMPTED TO WORK A PUZZLE BUT EXPRESSED SHE HAD TROUBLE SEEING IT.PT STATED "THIS WAS FUN" AND WAS SMILING AND MORE PLEASANT THAN MORNING GROUP.NO AGGRESSION, AGITATION, OR S.I. EXPRESSED. PT WILL CONTINUE TO ATTEND AND PARTICIPATE IN GROUP SESSIONS TO BEST OF ABILITY.
--- NOTE | 2019-07-03 17:35 | NUR ---
PT PLEASANT AND INTERACTIVE THIS AFTERNOON, STATED SHE HAS ALWAYS BEEN BASHFULL AND DIDN'T LIKE TALKING TO PEOPLE ALL HER LIFE. PT DID TALK WITH THIS NURSE ABOUT HOW SHE IS STRUGGLING TO GET USED TO NOT BEING IN CONTROL.
[2019-07-03 19:10] VITALS: BP 139/48
--- NOTE | 2019-07-03 21:00 | NUR ---
isolative to room. did have snack. emotional support to delay fear of male peers lookingin her room. door positioned for her comfort
--- NOTE | 2019-07-04 00:16 | NUR ---
PT RESTING IN BED CURRENTLY. DURING NIGHTIME MED PASS PATIENT DECLINES 1 TO 1. PLEASANT AND MEDICATION COMPLIANT. PT STATES SHE FEELS MORE SAFE WITH DOOR PARTIALLY SHUT. ASSISTIVE WITH POSTION FOR COMFORT. WILL MONITOR FOR MOOD AND BEHAVIOR CHANGES. WILL BE AVAILABLE FOR ANY NEEDS.
--- NOTE | 2019-07-04 05:11 | NUR ---
PT RESTING IN BED. NO DISTRESS NOTED.
--- NOTE | 2019-07-04 05:15 | NUR ---
24 HR chart check completed.
--- NOTE | 2019-07-04 06:49 | NUR ---
PT RESTING IN BED. PATIENT NOT AWAKENED TO GET DRESSED. WILL CONITNUE TO MONITOR.
[2019-07-04 07:43] VITALS: BP 140/68
--- NOTE | 2019-07-04 09:00 | NUR ---
Patient resting quietly with no c/o discomfort. Respirations easy and regular. Vital signs stable. No overt distress. MEHRDAD MEJIA
--- NOTE | 2019-07-04 10:47 | NUR ---
DR. DALAL ON UNIT TO ASSESS PATIENT.
--- NOTE | 2019-07-04 11:00 | NUR ---
PHYSICAL THERAPY PT SCREEN COMPLETED AND RESIDENT IS FOUND TO BE UP AD MITCH ON UNIT WITH NO ISSUES REQUIRING PT SERVICES AT THIS TIME. THANK YOU FOR REFERRAL MONIKA ALVARENGA PT
--- NOTE | 2019-07-04 11:27 | NUR ---
P: DEPRESSED MOOD, STATES "FEELING SAD" I: ONE ON ONE FOR EMOTIONAL SUPPORT, ENCOURAGE PATIENT TO BE IN THE DINING ROOM WITH STAFF AND OTHER PATIENTS FOR SOCIAL INTERACTION. REORIENT TO PLACE AND TIME NEEDED-REMINDERS R: EFFECTIVE. PATIENT UP IN DINING ROOM WITH STAFF AND OTHER PATIENTS, INTERACTING AND WATCHING TV. PATIENT IS ALERT TO PERSON AND AWARE OF BEING IN THE HOSPITAL WITH CONFUSION. LONG/SHORT TERM MEMORY DEFICITS. 1 PERSON ASSIST WITH ACTIVITES OF DAILY LIVING. CONTINENT OF BOWEL AND BLADDER. SET UP FOR MEALS, INTAKES ARE GOOD WITH ADEQUATE FLUIDS. AMBULATORY WITH STEADY GAIT. NO RESPONSE TO INTERNAL STIMULI. DENIES ANY HALLUCINATIONS, DELUSIONS, HI/SI OR PAIN. MEDICATION COMPLAINT WITH EDUCATION PROVIDED. Q 15 MINUTE SAFETY CHECKS MAINTAINED. P: CONTINUE TO MONITOR MOOD, ANY VOICED THOUGHTS OF SUICIDAL IDEATIONS. PROVIDE ONE ON ONE FOR EMOTIONAL SUPPORT AND REORIENTATION NEEDED.
--- NOTE | 2019-07-04 16:29 | NUR ---
Shift chart check completed.
[2019-07-04 19:49] VITALS: BP 145/70
--- NOTE | 2019-07-04 19:53 | NUR ---
P--FEAR/ SADNESS/ HOPELESS/HELPLESS I--EMOTIONAL SUPPORT. FULL DESCRIPTION OF WHY SHE WAS BROUGHT HERE. REVIEWED SAFETY GUIDELINES WE HAVE IN PLACE. EXPLAINED WHY DOOR IS LOCKED. INTRODUCED HER TO STAFF PRESENT R--CAN I TALK TO YOU? WHY AM I HERE, HOW DID I GET HERE AND HOW AM I GOING TO GET HOME. ARE YOU OPEN ALL NIGHT. I CAN'T REMEMBER ANYTHING. I AM SCARED. AFTER CONVERSATION SHE SAID OH THANK YOU I FEEL ALL GIDDY I FEEL SAFE. THANK YOU FOR BEING HERE FOR ME. CLIENT GAVE BIG HUG TO ME AND WAS SMILING. P--CONTINUE EMOTIONAL SUPPORT AND REORIENTATION. BE AVAILABLE TO TALK AT ALL TIMES. MONITOR FOR CHANGE IN BEHAVIOR/MOOD AND MONITOR SAFETY
--- NOTE | 2019-07-05 00:16 | NUR ---
24 HR chart check completed.
--- NOTE | 2019-07-05 06:07 | NUR ---
HAS SLEPT WELL PAST 2200PM. MOVES SELF IN BED. NO DISTRESS NOTED
--- NOTE | 2019-07-05 06:07 | NUR ---
07/04/19 NOTES UNDER REGULAR NURSES NOTES
--- NOTE | 2019-07-05 07:25 | NUR ---
OT NOTE Pt was seen this A.M. 1:1 for 25 minute OT session with FOOD TECHNOLOGY TEACHER and nursing staff present for observation only. Upon arrival pt was supine in bed, pt identified by name and and had complaints of BLE's feeling "sore all over." Pt transferred supine to sit EOB with Karina for assist with UB. While sitting EOB pt donned B socks and slippers LA after set up. Sit to stand completed from bed level with CGA for safety followed by functional mobility around the room with CGA for safety due to bouts of unsteady gait. Pt gathered supplies needed for ADL task and clothing from her closet with CGA for safety, pt required occasional verbal prompts for gathering correct items needed. Pt then transferred on/off standard commode with CGA for safety, clothing management completed with CGA while standing, and toilet hygiene completed with supervision while seated. Pt then stood sink side while doffing shirt and donning clean shirt with CGA for safety. She also stood sink side while completing UB bathing, washing her hands, and completing oral and hair care with CGA for safety and Karina due to verbal prompts for assist with what items were used for each task (toothbrush sitting on the sink in front of her, pt stating what do I use to brush my teeth?) Functional mobility was then completed to the dining room for breakfast with SBA and use of hand rail for UE support. Pt was left sitting upright in the dining room under [facility] staff supervision. Continue with rec D/C plan to [facility] or 24 hour supervision/assist. TOR Purcell/aHrmony
[2019-07-05 07:36] VITALS: BP 140/78
--- NOTE | 2019-07-05 08:15 | NUR ---
Treatment Plan meeting was held this a.m. with Dr. Pastor, RN, AT, SURGICAL SUPERVISOR-S and Resident Care Manager Rn in Attendance. Plan is for discharge at the end of the week. Pt. will return to [facility] at discharge.
--- NOTE | 2019-07-05 09:28 | NUR ---
DR. COUCH ON UNIT TO ASSESS PATIENT.
--- NOTE | 2019-07-05 09:46 | NUR ---
P: CONFUSION, DEPRESSED MOOD, SAD/FLAT DEMEANOR. TEAFUL THIS MORNING. AWARE OF HAVING PROBLEMS WITH MEMORY I: ONE ON ONE FOR EMOTIONAL SUPPORT, REORIENTATION AND VERABL CUEING NEEDED. ENCOURAGE PATIENT TO PARTICIPATED IN GROUP SESSION AND BE IN DINING ROOM MORE FOR SOCIAL INTERACTION. R: EFFECTIVE. PATIENT IS ALERT TO PERSON WITH CONFUSION. LONG/SHORT TERM MEMORY DEFICITS NOTED. MOOD IS DEPRESSED. DENIES ANY HALLUCINATIONS, DELUSIONS, HI/SI OR PAIN. MEDICATIONC COMPLAINT WITH EDUCATION. Q 15 MINUTE SAFETY CHECKS MAINTAINED. P: CONTINUE TO MONITOR MOOD AND VOICED THOUGHTS OF SI. PROVIDE ONE ON ONE FOR EMOTIONAL SUPPORT. VERBAL CUEING, ENCOURAGE GROUP PARTICIPATION NEEDED.
--- NOTE | 2019-07-05 11:25 | NUR ---
Spoke with Melania at [facility]. Advised of Plans to discharge at the end of the week, beginning of next week. Clinical Updates faxed to [facility] Attn: Nurse [phone]. Melania states that "Patient baseline is Pleasant and Friendly but Pt. is Different since a fall at facility last week"
--- NOTE | 2019-07-05 11:42 | NUR ---
AM GROUP PT ATTENDED MORNING GROUP THERAPY AND WAS WILLING TO PARTICIPATE FOR A FEW MINUTES BUT THEN ASKED, "CAN I GO TO MY ROOM AND LAY DOWN?" PT WAS TOLD THAT HER NURSE WOULD HAVE TO OKAY IT AND SHE STATED, "OH NEVERMIND!" AND PUSHED HER PROJECT OUT OF THE WAY AND LAY HER HEAD DOWN ON THE TABLE. PT SOON GOT UP AND SAT IN A COMFY CHAIR. PT EXPRESSED NO SUICIDAL IDEATIONS WHILE IN GROUP.
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
--- NOTE | 2019-07-05 15:45 | NUR ---
Pt continues with memory loss and confusion. Pt was pleasant during interactions with this chart writer today. Pt is superficial in conversation. During the afternoon, pt stated that she believed that she was not supposed to be here. Empathized with her and informed her that she was in the hospital, had seen the doctor earlier in the day, and that she would not have to be here for long. Pt was accepting of this information.
[2019-07-05 19:46] VITALS: BP 140/68
--- NOTE | 2019-07-05 20:31 | NUR ---
PM/EVENING PT ATTENDED SHORT PM GROUP BY OBSERVING AND FLIPPING THROUGH SOME PICTURE BOOKS. PT STATES "I HAVE LIVED A LONG TIME AND DONT REMEMEBER BEING THIS CONFUSED AND WORRIED, WHY AMI HERE?" THIS STAFF ATTEMPTS TO GIVE PT WORDS OF COMFORT AND LETS PT KNOW THAT WE STAFF ARE HERE TO HELP PT WHEN FEELING WORRIED AND CONFUSED AND TO NOT HESITATE TO REACH OUT. PT SMILED AND STATES "THANK YOU". NO S.I., AGITATION, OR AGGRESSION EXPRESSED AT THIS TIME. PT CHOSE NOT TO ATTEND EVENING GROUP DUE TO GOING TO BED EARLY.
--- NOTE | 2019-07-05 21:18 | NUR ---
PT QUIET THIS EVENING, SHE SAT IN COMMON AREA WITH PEERS, SMILED WHEN SPOKEN TO. SHE WAS ANXIOUS FOR SHORT PERIOD SEARCHING FOR WHERE SHE WAS SUPPOSED TO GO TO LEAVE. REDIRECTED BY STAFF THAT SHE WAS TO REMAIN HERE FOR THE EVENING. PT STATED SHE WAS CONCERNED HER SON WOULDN'T FIND HER HERE. AFTER MUCH 1:1 PT DID CALM. SHE VISITED WITH HER SON AND WAS PLEASANT AND COOPERATIVE. EDUCATION WITH SON HAS BEEN SUCCESSFUL WITH HOW TO TALK WITH HER TO DISTRACT AND REDIRECT CONVERSATION. PT CONTINUES TO HAVE DIFFICULTY WITH MEMORY RETENTION AT THIS TIME. REQUIRES GUIDANCE FOR WHAT TO DO THROUGOUT THE SHIFT. PT WILL ISOLATE HERSELF AWAY FROM OTHERS IF NOT PROMPTED. CONTINUE TO MONITOR, MEDICATION COMPLIANCE, SELF CARE, NO SI/HI NOTED.
--- NOTE | 2019-07-06 00:16 | NUR ---
24 HR chart check completed.
--- NOTE | 2019-07-06 05:03 | NUR ---
PT SLEPT 9 HOURS,
--- NOTE | 2019-07-06 07:18 | NUR ---
OT NOTE Pt was seen this A.M. 1:1 for 18 minute OT session with CATERER HELPER and nursing staff present for observation only. Upon arrival pt was supine in bed. Pt identified by name and and had no complaints at this time. Pt transferred supine to sit EOB with Karina for assist with UB. Pt then stood sink side while donning shirt and slippers with CGA for safety. Functional mobility was then completed to the bathroom with CGA, pt had several bouts of unsteady gati that required Karina to correct. There she transferred on/off standard commode with CGA for safety, clothing management completed with CGA, and toilet hygiene completed with SBA while seated. Pt then stood sink side while washing her hands with CGA and occasional verbal prompts for sequencing. Pt then completed functional mobility to the dining room with CGA and use of hand rail for UE support due to bouts of unsteady gait. Pt was left sitting upright in the dining room under [facility] staff supervision. Continue with rec D/C plan to [facility] or 24 hour supervision/assist. TOR Purcell/[place]
[2019-07-06 07:33] VITALS: BP 152/70
--- NOTE | 2019-07-06 08:15 | NUR ---
Treatment Plan meeting was held this a.m. with Dr. Pastor, RN, AT, OVEN WORKER-S and Creative Art Therapist in attendance. Plan for discharge next week. Pt. to return to [facility] at Discharge.
--- NOTE | 2019-07-06 10:40 | NUR ---
P: PT ISOLATIVE TO ROOM THIS MORNING. PT REFUSED TO PARTICIPATE IN GROUPS/ACTIVITIES. PT TEARFUL AT TIMES. I: PROVIDED EMOTIONAL SUPPORT AND 1:1 FOR PT TO VOICE FEELINGS, ENCOURAGED MED COMPLINACE AND PROVIDE MED EDUCATION, ENCOURAGED GROUP PARTICIPATION AND SOCIALIAZTION R: PT ALERT TO PERSON ONLY, CONFUSION AND SHORT TERM MEMORY DEFICITS NOTED PER PT BASELINE. PT CONTINUES TO REFUSE TO PARTICIPATE IN GROUP/ACTIVITES. PT CONTINUES TO ISOLATE TO ROOM. PT MED COMPLIANT WITHOUT DIFFICULTY, UNABLE TO PROVIDE MED EDUCATION D/T COGNITION. NO HALLUCINATIONS OR DELUSIONS NOTED. PT DENIES ANY SUICIDAL THOUGHTS. PT AMBULATORY THROUGHTOUT UNIT, GAIT STEADY. PT CONTINENT OF BOWEL AND BLADDER, EPISODES OF INCONTINENCE NOTED, CARE PROVIDED NEEDED. P: MONITOR PT BEHAVIORS ON Q15 MIN SAFETY CHECKS, ENCOURAGE MED COMPLIANCE, PROVIDE EMOTIONAL SUPPORT AND 1:1 FOR PT TO VOICE FEELINGS, ENCOURAGE GROUP PARTICIPATION AND SOCIALIZATION
--- NOTE | 2019-07-06 10:48 | NUR ---
DR. WILLINGHAM ON UNIT TO ASSESS PT, UPDATE PROVIDED.
--- NOTE | 2019-07-06 11:01 | NUR ---
IV PLACED IN LEFT AC FOR HEAD CT. PT TOLERATED WITHOUT ISSUE.
--- NOTE | 2019-07-06 11:48 | NUR ---
AM GROUP/CURRENT EVENTS PT ATTENDED MORNING GROUP THERAPY BUT CHOSE TO SIT AT A TABLE ALONE. PT LOOKED AT MAGAZINES AND THE NEWSPAPER. PT DOES NOT SOCIALIZE AND IS CONFUSED BY ANY QUESTION. PT EXHIBITED NO AGITATION OR AGGRESSION WHILE IN GROUP
--- NOTE | 2019-07-06 13:35 | NUR ---
PT OFF UNIT TO RADIOLOGY FOR HEADT CT.
--- NOTE | 2019-07-06 13:48 | NUR ---
PT RETURNED FROM RADIOLOGY.
--- NOTE | 2019-07-06 15:53 | NUR ---
This parts data writer was informed that pt was expressing anxiety about where her home is. This parts data writer typed a paper that states pt is in the hospital, where her home is, and that her son Crow knows that she is in the [facility]. Gave this paper to pt who voiced appreciation. After meeting with pt, phoned pt's son Crow and provided pt update. Crow stated that he plans on visiting pt every day after work. Informed pt that Crow would be visiting in a few hours. Informed nursing that Crow will visit every day, so that [facility] staff can continue to inform pt of this as needed.
[2019-07-06 19:53] VITALS: BP 158/78
--- NOTE | 2019-07-07 04:02 | NUR ---
PT MEDICATION COMPLIANT, SHE HAD WENT TO BED AT 1930 WITH MINIMAL INTERACTION WITH STAFF. NO COMPLAINT OF DISCOMFORT, NO SI/HI OR DELUSIONS NOTED. CONTINUE TO REORIENT NEEDED. 15 MIN CHECKS MAINTAINED
--- NOTE | 2019-07-07 06:08 | NUR ---
PATIENT OBSERVED ON Q 15 MIN CHECKS TO HAVE SLEPT APPROX 7 HOURS THROUGHOUT THE NIGHT WITH NO AWAKENINGS OR SIGNS AND SYMPTOMS OF DISTRESS NOTED.
--- NOTE | 2019-07-07 07:20 | NUR ---
OT NOTE Pt was seen this A.M. 1:1 for 20 minute OT session with OPTICAL LATHE OPERATOR and nursing staff present for observation only. Upon arrival pt was supine in bed. Pt identified by name and and had no complaints at this time. Pt transferred supine to sit EOB with SBA. While sitting EOB pt donned B socks with SBA for safety. Functional mobility was then completed around the room with SBA for safety while gathering clothing needed for ADL task. Pt stood while donning sweater with CGA for safety due to being unsteady while reaching over various planes. Pt transferred on/off standard commode with SBA followed by standing sink side while washing her hands with SBA. Functional mobility completed back to the dining room where she was left sitting upright [facility]. Continue with rec D/C plan to [facility] or 24 hour supervision/assist. OTR Purcell/Harmony
[2019-07-07 07:31] VITALS: BP 140/80
--- NOTE | 2019-07-07 08:15 | NUR ---
Treatment Plan meeting with Dr. Pastor, RN, AT, [facility] and Sports Psychologist. Plan for discharge next week, Possible Friday with return to [facility].
--- NOTE | 2019-07-07 10:00 | NUR ---
STAFF OBSERVED PT STUMBLE AND PT STATED "I JUST DONT FEEL GOOD, ITS LIKE IM NOT HERE". VS [id number]/53-98%RA, BS 157. NO COMPLIANTS OF PAIN NOTED, NO VISIBLE SIGNS OF DISTRESS. PT SEATED IN DINING ROOM AT THIS TIME WITH STAFF. 1004- SPOKE WITH DR. HARDEN AND ADVISED OF PT C/O NOT FEELING WELL. PER DR. HARDEN THEY WILL BE UP SHORTLY TO TAKE A LOOK AT HER.
--- NOTE | 2019-07-07 10:32 | NUR ---
DR. WILLINGHAM ON UNIT TO ASSESS PT, UPDATE PROVIDED.
--- NOTE | 2019-07-07 10:33 | NUR ---
DR. WILLINGHAM ON UNIT TO ASSESS PT, UPDATE PROVIDED. PER CONTINUE TO MONITOR PT AND UPDATE HIM NEEDED.
--- NOTE | 2019-07-07 11:42 | NUR ---
CLAUDIA REED/CAMERON JOSUE PT ATTENDED MORNING GROUP THERAPY AND PARTICIPATED BY WATCHING THE SHOW. PT WAS QUIET AND FOCUSED. PT EXHIBITED NO AGITATION OR AGGRESSION WHILE IN GROUP
--- NOTE | 2019-07-07 15:25 | NUR ---
Provided pt with a paper informing pt that she is in the hospital, where she lives, that her son Crow knows she is at [facility] and that Crow will be visiting her after work today. Pt voiced appreciation. Pt continues to be anxious as she struggles with memory loss.
--- NOTE | 2019-07-07 15:40 | NUR ---
PM /LYNDA PT ATTENDED AFTERNOON GROUP THERAPY BUT CHOSE NOT TO PARTICIPATE. PT SAT AT THE GAME TABLE AND OBSERVED. PT BECAME FEARFUL AND CONFUSED STATING, "I DON'T KNOW WHERE I AM! I DON'T KNOW WHAT'S GOING ON OR WHO ANY OF YOU PEOPLE ARE!" PT WAS REASSURED BUT NOT CONVINCED. PT ASKED TO GO TO HER ROOM TO LIE DOWN AND DID SO. PT EXHIBITED NO AGITATION OR AGGRESSION WHILE IN GROUP
--- NOTE | 2019-07-07 17:48 | NUR ---
PT ALERT TO PERSON ONLY, CONFUSION AND SHORT TERM MEMORY DEFICITS NOTED PER PT BASELINE. PT STATED TO THIS NURSE "SERGIO GOT A BIG PROBLEM, I AM STARTING TO LOSE MY MEMORY AND I DONT WANT TO GET INTO TROUBLE. WILL THERE BE SOMEONE WITH ME TONIGHT?" STAFF PROVIDED REASSURANCE TO PT AND ADVISED THAT SOMEONE IS AVALIABLE 24 HOURS A DAY. STAFF PROVIDED RE-ORIENTATION AND PRESENTED REALITY. NO HALLUCINATIONS OR DELUSIONS NOTED. NO SUICIDAL THOUGHTS OR BEHAVIORS NOTED. PT AMBULATORY THROUGHOUT UNIT, GAIT STEADY. PT CONTINENT OF BOWEL AND BLADDER. PLAN IS TO MONITOR PT BEHAVIORS ON Q15 MIN SAFETY CHECKS, ENCOURAGE MED COMPLIANCE, PROVIDE EMOTIONAL SUPPORT AND REASSURANCE NEEDED.
[2019-07-07 19:28] VITALS: BP 148/80
[2019-07-08 06:58] LABS: BASO # 0.1 10*3/uL (0.0-0.1); BASO % 0.7 % (0.0-1.0); EOS # 0.2 10*3/uL (0.0-0.4); EOS % 2.8 % (1.0-4.0); HEMATOCRIT 39.1 % (37.0-47.0); HEMOGLOBIN 12.6 g/dl (12.0-16.0); LYMPH # 2.5 10*3/uL (1.3-4.4); LYMPH % 36.3 % (27.0-41.0); MEAN CELL VOLUME 86.9 fl (81.0-99.0); MEAN CORPUSCULAR HGB CONC 32.2 g/dl (33.0-37.0); MEAN PLATELET VOLUME 9.7 fl (9.6-12.3); MONO # 0.5 10*3/uL (0.1-1.0); MONO % 7.8 % (3.0-9.0); NEUT # 3.6 10*3/uL (2.3-7.9); NEUT % 52.1 % (47.0-73.0); PLATELET COUNT AUTOMATED 246 10*3/uL (130-400); RED CELL DISTRI WIDTH 14.1 % (0-14.5); WHITE BLOOD COUNT 6.8 10*3/uL (4.8-10.8)
--- NOTE | 2019-07-08 07:15 | NUR ---
OT NOTE Pt was seen this A.M. 1:1 for 15 minute OT session with BODY STRAIGHTENER and nursing staff present for observation only. Upon arrival pt was supine in bed. Pt identified by name and and had no complaints at this time. Pt transferred supine to sit EOB with SBA. While sitting EOB pt donned B socks and slippers with supervision. Sit to stand completed from bed level with CGA for safety due to being unsteady upon inital rise. While standing pt donned sweater with CGA for safety. Functional mobility was then completed into the bathroom with CGA for safety. Pt transferred on/off standard commode with SBA, clothing management completed with SBA, and toilet hygiene complete with supervision while seated. Pt then stood sink side while washing her hands with SBA. Pt was left sitting upright in the dining room under [facility] staff supervision. Continue with rec D/C plan to [facility] or 24 hour supervision/assist. TOR Purcell/Harmony
[2019-07-08 07:26] LABS: ALBUMIN 3.3 gm/dl (3.1-4.5); CREATININE 1.13 mg/dL (0.55-1.02); TOTAL PROTEIN 6.4 gm/dL (6.4-8.2)
[2019-07-08 07:45] VITALS: BP 126/71
--- NOTE | 2019-07-08 10:09 | NUR ---
PT C/O DIZZINESS TO DR CREWS UPON SITTING UP. PER DR. CREWS BP OBTAINED SITTING 166/82 AND STANDING 158/78. NO C/O DIZZINESS NOTED AT THIS TIME. WILL CONTINUE TO MONITOR PT.
--- NOTE | 2019-07-08 10:48 | NUR ---
CINDY ANDERSON [id number] Please refer to the physician's history and physical for past medical history, comorbid conditions, and allergies. Diagnosis: MAJOR DEPRESSION RECURRENT SEVERE Bipin Score: 21,LOW OR NO RISK WOUND DESCRIPTIONS: Wound Number: 1 Location of the wound: Left elbow (REVISIT) Type of wound: skin tear Thickness: Partial Size: 1.5cm x 0.7cm x <0.1cm Tunneling: NONE Undermining: NONE Sinus Tract: NONE Presence of Exudate: NONE Amount: NONE Color: Red Odor: None Periwound Skin Appearance: Normal Wound edges: CLOSED. INTACT SCAB Pain (associated with wound): none at time of assessment How does patient state this happened? pt stated she hit on something Surface the patient is resting on: Proform SKIN PREVENTION RECOMMENDATION: 1. Pressure redistribution support surface as appropriate 2. Elevate heels 3. Remove boots/TEDS every shift and reapply 4. Head of bed 30 degrees as tolerated 5. Assess nutrition and hydration 6. Manage moisture 7. Avoid the use of containment devices while in bed 8. Use absorptive products on surfaces limit layers of linens on bed 9. Turn and reposition every 1-2 hours in bed and every 1 hour in chair as tolerated 10. Weight shifts every 15 minutes while up in chair 11. Offloading with pillows or device to keep heels elevated off bed 12. Monitor skin at least every shift 13. Inspect under medical devices twice a day WOUND TREATMENT RECOMMENDATIONS: Patient states that she does not want anything over this area.
--- NOTE | 2019-07-08 11:55 | NUR ---
AM/EXERCISE/CRAFT/MUSIC PT ATTENDED AND PARTICIPATED IN ALL GROUP ACTIVITY'S. PT PLEASANT AND ON TASK AT THIS TIME WITH NO, S.I., AGITATION OR AGGRESSION EXPESSED. PT WILL CONTINUE TO ATTEND AND PARTICIPATE IN FUTURE GROUP SESSIONS.
[2019-07-08 20:00] VITALS: BP 132/74
--- NOTE | 2019-07-08 23:17 | NUR ---
24 HR chart check completed.
--- NOTE | 2019-07-08 23:45 | NUR ---
P-CONFUSION I-PROVIDE EMOTIONAL SUPPORT, REORIENT, ADMININSTER MEDICATIONS, MONITOR SLEEP R-PT HAS REMAINED IN HER ROOM RESTING IN BED SINCE THE ONSET OF THE SHIFT. ALERT TO PERSON ONLY. PLEASANTLY CONFUSED WITH MEMORY DEFICITS STATING THAT SHE IS IN "A HOUSE. IS TIRED & IS CATCHING UP ON SLEEP." COMPLIANT WITH MEDICATIONS. NO PHYSICAL COMPLAINTS VOICED. P-CONTINUE TO MONITOR & PROVIDE PHYSICAL ASSISTANCE & EMOTIONAL SUPPORT NEEDED.
--- NOTE | 2019-07-09 04:30 | NUR ---
PT HAS SLEPT PAST 2200 WITH 1 BRIEF AWAKENING TO GO TO THE BATHROOM
--- NOTE | 2019-07-09 07:25 | NUR ---
OT NOTE Pt was seen this A.M. 1:1 for 25 minute OT session with nursing staff present for observation only. Upon arrival pt was supine in bed. Pt identified by name and and had no complaints at this time. Pt transferred supine to sit EOB with SBA. While sitting EOB pt donned B socks and slippers with supervision. Functional mobility was then completed around the room while gathering clothing and supplies for ADL task with SBA. Pt then donned sweater with supervision. Functional mobility completed into the bathroom with SBA, there she transferred on/off standard commode with supervision. Clothing management completed with supervision. She then stood sink side while washing her hands, face, and completing hair care with SBA. Pt was left sitting upright in the dining room under [facility] staff supervision. Continue with POC as able. TOR Purcell/Harmony
[2019-07-09 08:00] VITALS: BP 146/66
--- NOTE | 2019-07-09 08:15 | NUR ---
Treatment Plan meeting was held with Dr. Pastor, RN, AT, [facility] and Donor Services Specialist. Plan for discharge Friday with return to [facility].
--- NOTE | 2019-07-09 09:36 | NUR ---
Spoke with Meeta the Nurse at [facility]. Advised of Plans to discharge Pt. Friday. Provided with Updates and faxed Clinical Updates to Facility.
--- NOTE | 2019-07-09 11:02 | NUR ---
DR DALAL AND TEAM ON UNIT TO SEE PATIENT
--- NOTE | 2019-07-09 11:58 | NUR ---
AM GROUP/EXERCISE AND BRAIN GAMES PT ATTENDED MORNING GROUP THERAPY AND PARTICIPATED IN THE EXERCISES. PT WAS UNABLE TO PARTICIPATE IN THE WORD GAMES OR REMINISCING DUE TO SEVERE MEMORY LOSS. PT COULD NOT ANSWER SIMPLE QUESTIONS LIKE, "WHAT DID YOUR FAMILY DO FOR THANKSGIVING? DID YOU HAVE TURKEY?" PT STATED, "I REALLY COULDN'T SAY, I DON'T REMEMBER"
--- NOTE | 2019-07-09 12:13 | NUR ---
P-CONFUSED I-REDIRECTION WITH 1:1 THERAPEUTIC INTERVENTIONS AND PRESENT REALITY. ENCOURAGE MEDICATION COMPLIANCE R-PATIENT WITH CONTINOUS REDIRECTION WHEN AMBULATING ON THE UNIT. PATIENT MEDICATION COMPLIANT. PATIENT CONTINENT OF BLADDER THIS SHIFT. PATIENT WITH UNSTEADY GAIT AT TIMES WHEN AMBULATING. PATIENT DENIES HALLUCINATION OR DELUSIONS. PATIENT DENIES SUICIDAL OR HOMICIDAL IDEATIONS. PATIENT ISOLATIVE AT TIMES AMONG PEERS AT TIMES. PATIENT NEEDING ASSISTANCE AND CUEING WITH ADL'S P-CONTINUE TO ENCOURAGE MEDICATION COMPLIANCE, CONTINUE TO PRESENT REALITY, ENCOURAGE GROUP THERAPY WHILE AWAKE
--- NOTE | 2019-07-09 15:19 | NUR ---
OCCUPATIONAL THERAPY CO-SIGN I approve of the Occupational Therapy notes written above. FRANCISCO OWUSU OTR/Harmony
--- NOTE | 2019-07-09 16:13 | NUR ---
Shift chart check completed.
[2019-07-09 19:27] VITALS: BP 148/65
--- NOTE | 2019-07-09 22:17 | NUR ---
24 HR chart check completed.
--- NOTE | 2019-07-09 22:28 | NUR ---
P-CONFUSION I-PROVIDE EMOTIONAL SUPPORT, REORIENT, ADMININSTER MEDICATIONS, MONITOR SLEEP R-PT HAS REMAINED IN HER ROOM RESTING IN BED SINCE THE ONSET OF THE SHIFT. CAME OUT IN THE HALLWAY 2 TIMES VERY BRIEFLY. GAIT SLOW BUT STEADY. REFUSED SNACK. ALERT TO PERSON ONLY. PLEASANTLY CONFUSED WITH MEMORY DEFICITS. CONTINUES TO STATE THAT SHE IS TIRED. COMPLIANT WITH MEDICATIONS. P-CONTINUE TO MONITOR & PROVIDE PHYSICAL ASSISTANCE & EMOTIONAL SUPPORT NEEDED.
--- NOTE | 2019-07-10 06:47 | NUR ---
PT HAS SLEPT QUIETLY PAST 1999. UP TO BATHROOM X2. INDEPENDENT & CONTINENT OF URINE.
[2019-07-10 07:52] VITALS: BP 150/51
--- NOTE | 2019-07-10 10:53 | NUR ---
DR DALAL AND DR AGUILAR ON UNIT TO SEE PATIENT
--- NOTE | 2019-07-10 12:05 | NUR ---
AM GROUP/DISCUSSION/COPING PT ATTENDED SECOND PART OF GROUP TO LOOK THROUGH MAGAZINES AND ALSO WORKING ON "COPING PROJECT" FOCUSING ON BEING GRATEFUL. PT PLEASANT AND ON TASK WITH NO S.I., AGGRESSION, OR AGITATION EXPRESSED. PT WILL CONTINUE TO ATTEND AND PARTICIPATE IN GROUP TO BEST OF PT ABILITY.
--- NOTE | 2019-07-10 15:07 | NUR ---
P-CONFUSED I-REDIRECTION WITH 1:1 THERAPEUTIC INTERVENTIONS AND PRESENT REALITY. ENCOURAGE MEDICATION COMPLIANCE R-PATIENT WITH CONTINOUS REDIRECTION WHEN AMBULATING ON THE UNIT. PATIENT MEDICATION COMPLIANT. PATIENT WITH UNSTEADY GAIT AT TIMES WHEN AMBULATING. PATIENT DENIES HALLUCINATION OR DELUSIONS. PATIENT DENIES SUICIDAL OR HOMICIDAL IDEATIONS. PATIENT ISOLATIVE AT TIMES AMONG PEERS AT TIMES. PATIENT NEEDING ASSISTANCE AND CUEING WITH ADL'S P-CONTINUE TO ENCOURAGE MEDICATION COMPLIANCE, CONTINUE TO PRESENT REALITY, ENCOURAGE GROUP THERAPY WHILE AWAKE
--- NOTE | 2019-07-10 15:57 | NUR ---
PM GROUP/LEISURE/FOOTBALL PT ATTENDED AN DPARTICIPATED THORUGH CONVERSATION WITH STAFF AND PEERS. PT ASKING QUESTIONS ABOUT WHY SHE IS AT THE HOSPITAL AND IF THIS STAFF KNOWS HER AND HER SONS NAME. THIS STAFF ANSWERED YES AND PT BECAME TEARFUL STATING "THAT MAKES ME SO HAPPY YOU KNOW WHO MY SON AND I ARE BECAUSE I WAS STARTING TO WORRY THAT I DONT KNOW ANYONE HERE" PT STATES "JUST SITTING HERE WITH YOU ALL TALKING/LISTENING HAS MADE ME FEEL BETTER, THAK YOU."PT DID NOT EXPRESS ANY S.I., AGITATION OR AGGRESSION AT THIS TIME AND WILL CONTINUE TO ATTEND AN DPARTICIPATE IN FUTURE RGOUP SESSIONS TO BEST OF ABILITY.
--- NOTE | 2019-07-10 17:08 | NUR ---
Shift chart check completed.
[2019-07-10 20:00] VITALS: BP 151/79
--- NOTE | 2019-07-10 22:47 | NUR ---
P-CONFUSED I-REDIRECTION WITH 1:1 THERAPEUTIC INTERVENTIONS AND PRESENT REALITY. ENCOURAGE MEDICATION COMPLIANCE R-PATIENT WITH CONTINOUS REDIRECTION WHEN AMBULATING ON THE UNIT. PATIENT MEDICATION COMPLIANT. PATIENT WITH UNSTEADY GAIT AT TIMES WHEN AMBULATING. PATIENT DENIES HALLUCINATION OR DELUSIONS. PATIENT DENIES SUICIDAL OR HOMICIDAL IDEATIONS. PATIENT ISOLATIVE AT TIMES AMONG PEERS AT TIMES. PATIENT NEEDING ASSISTANCE AND CUEING WITH ADL'S. PATIENT PROVIDED FLUIDS AND NOURISHMENT AT HS P-CONTINUE TO ENCOURAGE MEDICATION COMPLIANCE, CONTINUE TO PRESENT REALITY, ENCOURAGE GROUP THERAPY WHILE AWAKE
--- NOTE | 2019-07-11 05:38 | NUR ---
PATIENT OBSERVED ON Q 15 MIN CHECKS TO HAVE SLEPT APPROX 7 HOURS THROUGHOUT THE NIGHT WITH NO AWAKENINGS OR SIGNS AND SYMPTOMS OF DISTRESS NOTED.
--- NOTE | 2019-07-11 07:48 | NUR ---
Patient resting quietly with no c/o discomfort. Respirations easy and regular. Vital signs stable. No overt distress. GIVENS,DIONNA
--- NOTE | 2019-07-11 07:51 | NUR ---
DR AGUILAR UPDATED ON PT BP OF 176/80. STATED HE WOULD PUT SOMETHING IN.
[2019-07-11 07:56] VITALS: BP 176/80
--- NOTE | 2019-07-11 08:12 | NUR ---
PHARMACY CALLED FOR CLONODINE AND FOSAMAX.
[2019-07-11 10:30] VITALS: BP 144/76
--- NOTE | 2019-07-11 12:19 | NUR ---
AM GROUP/EXERCISES/BRAIN GAMES PT ATTENDED AND PARTICIPATED IN ALL GROUP ACTIVITY. PT ENJOYS EXERCISE AND ADDS HER OWN EXERCISES AND WILL DO EXTRA SETS. PT ALSO SMILING AND PLEASANT DURING MUSIC TRIVIA AND MAD MITCH. TOWARDS THE END OF GROUP PT BECAME TEARFUL EXPRESSING CONFUSION TO WHY SHE IS HERE. THIS STAFF ORIENT'S PT TO SITUATION AND PT SMILES AND STATES "THAT MAKES ME FEEL BETTER". PT WILL CONTINUE TO ATTEND AND PARTICIPATE IN FUTURE GROUP SESSIONS TO BEST OF PT ABILITY.
[2019-07-11 20:00] VITALS: BP 143/69
--- NOTE | 2019-07-11 23:34 | NUR ---
P-CONFUSED, PARANOID I-REDIRECTION WITH 1:1 THERAPEUTIC INTERVENTIONS AND PRESENT REALITY. ENCOURAGE MEDICATION COMPLIANCE R-PATIENT WITH CONTINOUS REDIRECTION WHEN AMBULATING ON THE UNIT. PATIENT MEDICATION COMPLIANT. PATIENT WITH UNSTEADY GAIT AT TIMES WHEN AMBULATING. PATIENT DENIES HALLUCINATION OR DELUSIONS. PATIENT DENIES SUICIDAL OR HOMICIDAL IDEATIONS. PATIENT ISOLATIVE AT TIMES AMONG PEERS AT TIMES. PATIENT NEEDING ASSISTANCE AND CUEING WITH ADL'S. PATIENT PROVIDED FLUIDS AND NOURISHMENT AT HS. PATIENT PARANOID THAT SOMEONE IS AFTER HER AND AFRAID TO LAY IN BED. PATIENT RESTLESS AND WITH MULITPLE ATTEMPTS TO GO TO BED THROUGHOUT SHIFT. P-CONTINUE TO ENCOURAGE MEDICATION COMPLIANCE, CONTINUE TO PRESENT REALITY, ENCOURAGE GROUP THERAPY WHILE AWAKE
--- NOTE | 2019-07-12 06:05 | NUR ---
PATIENT SLEPT 8 HOURS OF UNINTERRUPTED SLEEP THROUGHOUT SHIFT. Q 15 MINUTE CHECKS MAINTAINED. 24 HR chart check completed.
--- NOTE | 2019-07-12 07:15 | NUR ---
OT NOTE Pt was seen this A.M. 1:1 for 15 minute OT session with SCRAPPER and nursing staff present for observation only. Upon arrival pt was supine in bed. Pt identified by name and and had no complaints at this time. Pt transferred supine to sit EOB with supervision. While sitting EOB pt donned B slippers with supervision. Sit to stand then completed from bed level with supervision followed by functional mobility to the closet where she gathered her pants and sweater with SBA for safety. Pt donned pants while sitting EOB with supervision and shirt while standing with SBA for safety. Pt then stood sink side while washing her hands and completing hair care with SBA. Functional mobility completed to the dining room with SBA where she was left sitting upright under [facility] staff supervision. Continue with POC as able. TOR Purcell/Harmony
[2019-07-12 08:00] VITALS: BP 139/75
--- NOTE | 2019-07-12 08:30 | NUR ---
Treatment Plan meeting was held this a.m. with Dr. Pastor, RN, AT, [facility]RAIN[facility]PER[facility] and Bullet Swaging Machine Operator. Plan for discharge Today. Pt. to return to [facility]. Son to transport with pick remover time 5:30 p.m. Call Placed to [facility] and Left Message and return phone number for the nurse to discuss discharge planning.
[2019-07-12] MEDS ORDERED: RIVASTIGMINE TAR3 M1 PO (09:29)
[2019-07-12] MEDS ORDERED: MEMANTINE HCL10 MG PO (09:29)
[2019-07-12] MEDS ORDERED: MIRTAZAPINE15 M2 PO (09:29)
--- NOTE | 2019-07-12 11:18 | NUR ---
JANETTE ELENITA UPDATED ON PT DISCHARGE. JANETTE STATED HE WOULD BE HERE BETWEEN 5:30-6PM.
--- NOTE | 2019-07-12 11:48 | NUR ---
AM GROUP PT ATTENDED MORNING GROUP THERAPY AND PARTICIPATED BY READING THE PAPER AND WALKING LAPS IN THE [place]. PT EXHIBITED NO AGITATION OR AGGRESSION WHILE IN GROUP NOR EXPRESSED ANY SUICIDAL IDEATIONS.
--- NOTE | 2019-07-12 15:48 | NUR ---
ROCAEL REED/EMMA PT ATTENDED AFTERNOON GROUP THERAPY AND PARTICIPATED BY PAINTING MCLAIN. PT WAS QUIET AND ON TASK. PT IS SET TO BE DISCHARGED FROM THE UNIT THIS AFTERNOON.
--- NOTE | 2019-07-12 17:08 | NUR ---
PT OFF UNIT AT THIS TIME WITH SECURITY AND MENTAL HEALTH WORKER.
--- NOTE | 2019-07-13 15:33 | NUR ---
OCCUPATIONAL THERAPY CO-SIGN I approve of the Occupational Therapy notes written above. FRANCISCO OWUSU OTR/Harmony
== END 2019-07-12 17:07 | disposition home or self-care (01) | DRG 885 ==
LOC: 3N 16:52
PROVIDERS: ADMIT Psychiatry & Neurology Psychiatry
DX: F33.9 Major depressive disorder, recurrent, unspecified (principal); F02.81 Dementia in other diseases classified elsewhere, unspecified severity, with behavioral disturbance; F63.81 Intermittent explosive disorder; N18.3 Chronic kidney disease, stage 3 (moderate); G30.9 Alzheimer's disease, unspecified; M85.80 Other specified disorders of bone density and structure, unspecified site; I12.9 Hypertensive chronic kidney disease with stage 1 through stage 4 chronic kidney disease, or unspecified chronic kidney disease; E13.22 Other specified diabetes mellitus with diabetic chronic kidney disease; E78.5 Hyperlipidemia, unspecified; E55.9 Vitamin D deficiency, unspecified; Z88.8 Allergy status to other drugs, medicaments and biological substances; Z88.6 Allergy status to analgesic agent; Z90.710 Acquired absence of both cervix and uterus; Z82.49 Family history of ischemic heart disease and other diseases of the circulatory system; Z79.899 Other long term (current) drug therapy

== ENCOUNTER 2019-09-25 17:15 | Emergency (ER) | payer MEDICARE ==
[~2019-09-25] VITALS: Ht 157.4 cm; Wt 47.6 kg
[~2019-09-25 17:15] MED LIST changes: +ALENDRONATE SOD35 M1 PO; +DIAMODE2 MG PO; +LIPITOR20 MG PO; +LISINOPRIL20 MG PO; +NAMENDA10 MG PO; +POTASSIUM CHLO10 ME5 PO; +ZOLOFT50 MG PO
[2019-09-25 18:12] LABS: BASO # 0.1 10*3/uL (0.0-0.1); BASO % 0.8 % (0.0-1.0); EOS # 0.3 10*3/uL (0.0-0.4); EOS % 4.2 % (1.0-4.0); HEMATOCRIT 39.7 % (37.0-47.0); HEMOGLOBIN 12.6 g/dl (12.0-16.0); LYMPH # 1.8 10*3/uL (1.3-4.4); LYMPH % 28.2 % (27.0-41.0); MEAN CELL VOLUME 91.7 fl (81.0-99.0); MEAN CORPUSCULAR HGB 29.1 pg (27.0-31.0); MEAN CORPUSCULAR HGB CONC 31.7 g/dl (33.0-37.0); MEAN PLATELET VOLUME 9.3 fl (9.6-12.3); MONO # 0.5 10*3/uL (0.1-1.0); MONO % 7.8 % (3.0-9.0); NEUT # 3.8 10*3/uL (2.3-7.9); NEUT % 58.7 % (47.0-73.0); PLATELET COUNT AUTOMATED 232 10*3/uL (130-400); RED BLOOD COUNT 4.33 10*6/uL (4.10-5.10); RED CELL DISTRI WIDTH 13.1 % (0-14.5); WHITE BLOOD COUNT 6.5 10*3/uL (4.8-10.8)
[2019-09-25 18:23] LABS: ACT PARTIAL THROMBO TIME 25.4 SECONDS (20.0-32.1); INTERNATIONAL NORM RATIO 0.9 (2.0-3.5)
[2019-09-25 18:28] LABS: ALKALINE PHOSPHATASE 55 U/L (45-117); BUN 27 mg/dl (7-24); CHLORIDE 110 mmol/L (98-107); CREATININE 1.13 mg/dL (0.55-1.02); LIPASE 111 U/L (73-393); POTASSIUM 3.9 mmol/L (3.5-5.1); SGOT/AST 16 IU/L (3-35); SGPT/ALT 19 U/L (12-78); SODIUM 142 mmol/L (136-145); TOTAL PROTEIN 7.4 gm/dL (6.4-8.2)
[2019-09-25 18:34] LABS: TROPONIN I < 0.015 ng/ml (<0.045)
[2019-09-25 19:18] LABS: BILIRUBIN NEGATIVE (NEGATIVE); BLOOD TRACE-LYSED (NEGATIVE); CLARITY CLEAR (CLEAR); COLOR YELLOW (YELLOW); GLUCOSE NEGATIVE (NEGATIVE); KETONE NEGATIVE (NEGATIVE); LEUKO ESTERASE NEGATIVE (NEGATIVE); NITRITE NEGATIVE (NEGATIVE); SPECIFIC GRAVITY 1.015 (1.005-1.030); UROBILINOGEN 0.2 E.U./dl (0.2-1.0)
[2019-09-25 19:20] LABS: BACTERIA TRACE; EPITHELIAL CELLS 0-2; RBC 0-2 rbc/hpf (0-2); WBC 0-2 wbc/hpf (0-5)
== END 2019-09-25 20:45 | disposition other institution (70) ==
LOC: ED 17:15
PROVIDERS: Nurse Practitioner Family
DX: F39 Unspecified mood [affective] disorder (principal); G30.9 Alzheimer's disease, unspecified; F02.80 Dementia in other diseases classified elsewhere, unspecified severity, without behavioral disturbance, psychotic disturbance, mood disturbance, and anxiety; I12.9 Hypertensive chronic kidney disease with stage 1 through stage 4 chronic kidney disease, or unspecified chronic kidney disease; E11.22 Type 2 diabetes mellitus with diabetic chronic kidney disease; N18.9 Chronic kidney disease, unspecified; M81.0 Age-related osteoporosis without current pathological fracture; E78.5 Hyperlipidemia, unspecified; M19.90 Unspecified osteoarthritis, unspecified site; Z88.8 Allergy status to other drugs, medicaments and biological substances; Z88.6 Allergy status to analgesic agent; Z79.899 Other long term (current) drug therapy; Z90.710 Acquired absence of both cervix and uterus; Z98.61 Coronary angioplasty status